=== PATIENT | female | born 1995 | race Caucasian/White ===

== ENCOUNTER 2023-10-26 15:46 | Inpatient (IN) | payer BC, OTHER ==
--- NOTE | 2023-10-26 16:28 | ED ---
General Adult HPI - General Chief complaint: Upper Respiratory Infection Stated complaint: High BP Time Seen by Provider: 10/26/23 16:12 Source: patient Mode of arrival: ambulatory Limitations: no limitations - History of Present Illness Initial comments: Carina is a pleasant 28yo F who presents to the ER today via private vehicle for evaluation of multiple complaints. Patient is 4 days , yesterday she developed runny stuffy nose, headache and generalized malaise she was seen at an urgent care where her BP was 130s/70s and she was negative for Flu/COVID. 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 Chahal who advised her to seek care in the nearest ER for evaluation of possible preeclampsia. Upon arrival here patient reports she still has runny stuffy nose she has developed a headache and fever. She denies abdominal pain nausea vomiting. She states minimal uterine cramping no malodorous discharge. The patient is currently breast-feeding and planning to continue to. - Related Data Allergies Allergy/AdvReac Type Severity Reaction Status Date / Time No Known Allergies Allergy Verified 10/26/23 15:58 Review of Systems ROS Statement: Those systems with pertinent positive or pertinent negative responses have been documented in the HPI. ROS Other: All systems not noted in ROS Statement are negative. Past Medical History Past Medical History: No Reported History Past Surgical History: Orthopedic Surgery General Exam - General Exam Comments Initial Comments: Physical Exam GENERAL: Ill appearing, flushed HENT: Normocephalic, Atraumatic. EYES: PERRL, EOMI PULMONARY: Unlabored respirations. CARDIOVASCULAR: RRR ABDOMEN: Soft with appropriate tenderness SKIN: Skin is clear with no lesions or rashes and otherwise unremarkable. : Deferred NEUROLOGIC: Patient is alert and oriented x3. Moving all extremities spontaneously MUSCULOSKELETAL: Normal extremities with adequate strength and full range of motion. No lower extremity swelling or edema. No calf tenderness. PSYCHIATRIC: Normal psychiatric evaluation. Limitations: no limitations Course Vital Signs 10/26/23 10/26/23 10/26/23 15:53 16:20 17:00 Temperature 101.5 F H Pulse Rate 79 69 Respiratory 16 20 Rate Blood Pressure 179/102 161/97 161/97 O2 Sat by Pulse 94 L 93 L Oximetry 10/26/23 10/26/23 10/26/23 17:23 18:47 19:47 Temperature 98.8 F Pulse Rate 64 79 84 Respiratory 18 18 16 Rate Blood Pressure 150/87 141/82 134/79 O2 Sat by Pulse 93 L 93 L 95 Oximetry 10/26/23 10/26/23 10/26/23 20:00 21:15 22:13 Temperature 97.8 F Pulse Rate 80 80 84 Respiratory 18 18 16 Rate Blood Pressure 134/79 147/82 137/88 O2 Sat by Pulse 96 97 96 Oximetry 10/26/23 10/27/23 10/27/23 23:30 00:00 01:00 Temperature 98.6 F Pulse Rate 82 90 89 Respiratory 18 18 18 Rate Blood Pressure 149/91 149/91 150/85 O2 Sat by Pulse 95 95 96 Oximetry EKG Findings - EKG Comments: EKG Findings:: EKG interpreted by me, EKG obtained at 1636 rate is 67 rhythm is sinus, [place] 149 QRS 96 QTc [address] elevations or depressions no evidence of acute ischemia or infarction Medical Decision Making - Medical Decision Making Was pt. sent in by a medical professional or institution (, PA, FISH BAILER, urgent care, hospital, or long term...) When possible be specific @ -Yes advised to come in by her OB Did you speak to anyone other than the patient for history (EMS, parent, family, police, friend...)? What history was obtained from this source @ -No Did you review nursing and triage notes (agree or disagree)? Why? @ -I reviewed and agree with nursing and triage notes Were old charts reviewed (outside hosp., previous admission, EMS record, old EKG, old radiological studies, urgent care reports/EKG's, long term records)? Report findings @ -No old charts were reviewed Differential Diagnosis (chest pain, altered mental status, abdominal pain women, abdominal pain men, vaginal bleeding, weakness, fever, dyspnea, syncope, headache, dizziness, GI bleed, back pain, seizure, CVA, palpatations, mental health)? @ -Differential Dyspnea: Coronary syndrome, arrhythmia, tamponade, asthma, COPD, pulmonary embolism, pneumonia, pneumothorax, pulmonary effusion, anaphylaxis, diabetic ketoacidosis, flailed chest, pulmonary contusion, diaphragmatic rupture, anemia, neuromuscular, this is not meant to be an all-inclusive list. Differential for hypertension is untreated hypertension, preeclampsia EKG interpreted by me (3pts min.). @ -As above X-rays interpreted by me (1pt min.). @ -Left-sided consolidation and effusion CT interpreted by me (1pt min.). @ -None done U/S interpreted by me (1pt. min.). @ -None done What testing was considered but not performed or refused? (CT, X-rays, U/S, labs)? Why? @ -None What meds were considered but not given or refused? Why? @ -None Did you discuss the management of the patient with other professionals (professionals i.e. Dr., PA, FISH BAILER, lab, RT, psych nurse, geriatric social work professor, dip filler, teacher, retail loss prevention officer, case assembler)? Give summary @ -Yes discussed with on-call OB Dr. Ge Was smoking cessation discussed for >3mins.? @ -No Was critical care preformed (if so, how long)? @ -Yes, 35 minutes Were there social determinants of health that impacted care today? How? (Homelessness, low income, unemployed, alcoholism, drug addiction, transportation, low edu. Level, literacy, decrease access to med. care, usp, rehab)? @ -No Was there de-escalation of care discussed even if they declined (Discuss DNR or withdrawal of care, Hospice)? DNR status @ -No What co-morbidities impacted this encounter? (DM, HTN, Smoking, COPD, CAD, Cancer, CVA, ARF, Chemo, Hep., AIDS, mental health diagnosis, sleep apnea, morbid obesity)? @ -None Was patient admitted / discharged? Hospital course, mention meds given and route, prescriptions, significant lab abnormalities, going to OR and other pertinent info. @ -Admit The patient was seen and evaluated immediately upon arrival to the emergency department. This patient is 4 days and noted to be significantly hypertensive in addition the patient is febrile but not tachycardic or tachypneic. Septic workup as well as labs for preeclampsia were ordered. Patient care was then discussed with Dr. Ge who recommended treatment for preeclampsia with antihypertensives, magnesium and plan for admission for 24-hour magnesium. Patient's blood pressure improved with labetalol and magnesium Labs were reviewed, there is elevation of LDH and lactic acid mild transaminitis concerning for preeclampsia, however there is no proteinuria noted In addition patient is noted to likely have a left-sided pneumonia -Rocephin and azithromycin were ordered Patient will be admitted to OB for treatment of preeclampsia Patient also found to have significant left-sided pneumonia, she meets sepsis criteria and has been treated appropriately with antipyretics IV fluids and broad-spectrum antibiotics. Patient was noted to have oxygen saturation in the low 90s while at rest given the multiple compounding conditions the patient has going on right now I do have concern that she will become critically ill and will require very close monitoring. Dr. Mariscal agreed to consult on care for patient placement in the ICU. Recommends every 4 hour magnesium level. Additional labs were ordered upon admission patient was noted to have a indeterminately elevated troponin, elevated BNP concerning for CHF, elevated reticulocyte count. Given these multiple findings echo was ordered and cardiology was consulted. Undiagnosed new problem with uncertain prognosis? @ -Yes Drug Therapy requiring intensive monitoring for toxicity (Heparin, Nitro, Insulin, Cardizem)? @ -Yes, magnesium infusion Were any procedures done? @ -No Diagnosis/symptom? @ - preeclampsia Acute, or Chronic, or Acute on Chronic? @ -Acute Uncomplicated (without systemic symptoms) or Complicated (systemic symptoms)? @ -Complicated Side effects of treatment? @ -No Exacerbation, Progression, or Severe Exacerbation? @ -No Poses a threat to life or bodily function? How? (Chest pain, USA, PA, pneumonia, PE, COPD, DKA, ARF, appy, cholecystitis, CVA, Diverticulitis, Homicidal, Eusebia cidal, threat to staff... and all critical care pts) @ -Yes can advance to eclampsia seizures and Diagnosis/symptom? @ -Sepsis, pneumonia Acute, or Chronic, or Acute on Chronic? @ -Acute Uncomplicated (without systemic symptoms) or Complicated (systemic symptoms)? @ -Complicated Side effects of treatment? @ -None Exacerbation, Progression, or Severe Exacerbation] @ -No Poses a threat to life or bodily function? @ -Yes can advance to septic shock cardiovascular collapse and - Lab Data Result diagrams: 10/26/23 16:33 10/26/23 16:33 Lab Results 10/26/23 10/26/23 10/26/23 Range/Units 16:33 16:33 16:33 WBC 12.7 H (3.8-10.6) k/uL RBC 4.23 (3.80-5.40) m/uL Hgb 12.8 (11.4-16.0) gm/dL Hct 37.8 (34.0-46.0) % MCV 89.3 (80.0-100.0) fL MCH 30.3 (25.0-35.0) pg MCHC 33.9 (31.0-37.0) g/dL RDW 13.8 (11.5-15.5) % Plt Count 292 (150-450) k/uL MPV 7.9 Neutrophils % 82 % Lymphocytes % 11 % Monocytes % 5 % Eosinophils % 1 % Basophils % 0 % Neutrophils # 10.5 H (1.3-7.7) k/uL Lymphocytes # 1.4 (1.0-4.8) k/uL Monocytes # 0.6 (0-1.0) k/uL Eosinophils # 0.1 (0-0.7) k/uL Basophils # 0.1 (0-0.2) k/uL Retic Count (0.5-2.0) % PT 10.1 (10.0-12.5) sec INR 0.9 (<1.2) APTT 24.6 (22.0-30.0) sec Sodium (137-145) mmol/L Potassium (3.5-5.1) mmol/L Chloride (98-107) mmol/L Carbon Dioxide (22-30) mmol/L Anion Gap mmol/L BUN (7-17) mg/dL Creatinine (0.52-1.04) mg/dL Est GFR (CKD-EPI)AfAm (>60 ml/min/1.73 sqM) Est GFR (CKD-EPI)NonAf (>60 ml/min/1.73 sqM) Glucose (74-99) mg/dL Plasma Lactic Acid Maynor (0.7-2.0) mmol/L Uric Acid (3.7-7.4) mg/dL Calcium (8.4-10.2) mg/dL Magnesium (1.6-2.3) mg/dL Total Bilirubin (0.2-1.3) mg/dL AST (14-36) U/L ALT (4-34) U/L Alkaline Phosphatase (38-126) U/L Lactate Dehydrogenase (120-246) U/L NT-Pro-B Natriuret Pep pg/mL Total Protein (6.3-8.2) g/dL Albumin (3.5-5.0) g/dL Urine Color Colorless Urine Appearance Clear (Clear) Urine pH 7.0 (5.0-8.0) Ur Specific Seymour 1.004 (1.001-1.035) Urine Protein Negative (Negative) Urine Glucose (UA) Negative (Negative) Urine Ketones Negative (Negative) Urine Blood Small H (Negative) Urine Nitrite Negative (Negative) Urine Bilirubin Negative (Negative) Urine Urobilinogen <2.0 (<2.0) mg/dL Ur Leukocyte Esterase Negative (Negative) Urine RBC 1 (0-5) /hpf Urine WBC (0-5) /hpf Urine WBC Clumps (None) /hpf Ur Squamous Epith Cells <1 (0-4) /hpf Urine Bacteria (None) /hpf Influenza Type A (PCR) (Not Detectd) Influenza Type B (PCR) (Not Detectd) RSV (PCR) (Not Detectd) SARS-CoV-2 (PCR) (Not Detectd) 10/26/23 10/26/23 10/26/23 Range/Units 16:33 16:33 16:33 WBC (3.8-10.6) k/uL RBC (3.80-5.40) m/uL Hgb (11.4-16.0) gm/dL Hct (34.0-46.0) % MCV (80.0-100.0) fL MCH (25.0-35.0) pg MCHC (31.0-37.0) g/dL RDW (11.5-15.5) % Plt Count (150-450) k/uL MPV Neutrophils % % Lymphocytes % % Monocytes % % Eosinophils % % Basophils % % Neutrophils # (1.3-7.7) k/uL Lymphocytes # (1.0-4.8) k/uL Monocytes # (0-1.0) k/uL Eosinophils # (0-0.7) k/uL Basophils # (0-0.2) k/uL Retic Count (0.5-2.0) % PT (10.0-12.5) sec INR (<1.2) APTT (22.0-30.0) sec Sodium 133 L (137-145) mmol/L Potassium 3.3 L (3.5-5.1) mmol/L Chloride 101 (98-107) mmol/L Carbon Dioxide 23 (22-30) mmol/L Anion Gap 9 mmol/L BUN 7 (7-17) mg/dL Creatinine 0.65 (0.52-1.04) mg/dL Est GFR (CKD-EPI)AfAm >90 (>60 ml/min/1.73 sqM) Est GFR (CKD-EPI)NonAf >90 (>60 ml/min/1.73 sqM) Glucose 99 (74-99) mg/dL Plasma Lactic Acid Maynor 1.1 (0.7-2.0) mmol/L Uric Acid 5.5 (3.7-7.4) mg/dL Calcium 8.5 (8.4-10.2) mg/dL Magnesium (1.6-2.3) mg/dL Total Bilirubin 0.8 (0.2-1.3) mg/dL AST 60 H (14-36) U/L ALT 38 H (4-34) U/L Alkaline Phosphatase 142 H (38-126) U/L Lactate Dehydrogenase 452 H (120-246) U/L NT-Pro-B Natriuret Pep pg/mL Total Protein 6.7 (6.3-8.2) g/dL Albumin 3.6 (3.5-5.0) g/dL Urine Color Urine Appearance (Clear) Urine pH (5.0-8.0) Ur Specific Seymour (1.001-1.035) Urine Protein (Negative) Urine Glucose (UA) (Negative) Urine Ketones (Negative) Urine Blood (Negative) Urine Nitrite (Negative) Urine Bilirubin (Negative) Urine Urobilinogen (<2.0) mg/dL Ur Leukocyte Esterase (Negative) Urine RBC (0-5) /hpf Urine WBC (0-5) /hpf Urine WBC Clumps (None) /hpf Ur Squamous Epith Cells (0-4) /hpf Urine Bacteria (None) /hpf Influenza Type A (PCR) Not Detected (Not Detectd) Influenza Type B (PCR) Not Detected (Not Detectd) RSV (PCR) Not Detected (Not Detectd) SARS-CoV-2 (PCR) Not Detected (Not Detectd) 10/26/23 10/26/23 10/26/23 Range/Units 16:33 16:33 17:15 WBC (3.8-10.6) k/uL RBC (3.80-5.40) m/uL Hgb (11.4-16.0) gm/dL Hct (34.0-46.0) % MCV (80.0-100.0) fL MCH (25.0-35.0) pg MCHC (31.0-37.0) g/dL RDW (11.5-15.5) % Plt Count (150-450) k/uL MPV Neutrophils % % Lymphocytes % % Monocytes % % Eosinophils % % Basophils % % Neutrophils # (1.3-7.7) k/uL Lymphocytes # (1.0-4.8) k/uL Monocytes # (0-1.0) k/uL Eosinophils # (0-0.7) k/uL Basophils # (0-0.2) k/uL Retic Count 3.1 H (0.5-2.0) % PT (10.0-12.5) sec INR (<1.2) APTT (22.0-30.0) sec Sodium (137-145) mmol/L Potassium (3.5-5.1) mmol/L Chloride (98-107) mmol/L Carbon Dioxide (22-30) mmol/L Anion Gap mmol/L BUN (7-17) mg/dL Creatinine (0.52-1.04) mg/dL Est GFR (CKD-EPI)AfAm (>60 ml/min/1.73 sqM) Est GFR (CKD-EPI)NonAf (>60 ml/min/1.73 sqM) Glucose (74-99) mg/dL Plasma Lactic Acid Maynor (0.7-2.0) mmol/L Uric Acid (3.7-7.4) mg/dL Calcium (8.4-10.2) mg/dL Magnesium 1.5 L (1.6-2.3) mg/dL Total Bilirubin (0.2-1.3) mg/dL AST (14-36) U/L ALT (4-34) U/L Alkaline Phosphatase (38-126) U/L Lactate Dehydrogenase (120-246) U/L NT-Pro-B Natriuret Pep 1150 pg/mL Total Protein (6.3-8.2) g/dL Albumin (3.5-5.0) g/dL Urine Color Colorless Urine Appearance Clear (Clear) Urine pH 6.0 (5.0-8.0) Ur Specific Seymour 1.009 (1.001-1.035) Urine Protein 1+ H (Negative) Urine Glucose (UA) Negative (Negative) Urine Ketones Negative (Negative) Urine Blood Small H (Negative) Urine Nitrite Negative (Negative) Urine Bilirubin Negative (Negative) Urine Urobilinogen <2.0 (<2.0) mg/dL Ur Leukocyte Esterase Large H (Negative) Urine RBC 9 H (0-5) /hpf Urine WBC 45 H (0-5) /hpf Urine WBC Clumps Rare H (None) /hpf Ur Squamous Epith Cells <1 (0-4) /hpf Urine Bacteria Moderate H (None) /hpf Influenza Type A (PCR) (Not Detectd) Influenza Type B (PCR) (Not Detectd) RSV (PCR) (Not Detectd) SARS-CoV-2 (PCR) (Not Detectd) Critical Care Time Critical Care Time: Yes Total Critical Care Time: 45 Disposition Clinical Impression: depression associated with first , Sepsis, Pneumonia Disposition: ADMITTED IP TO THIS HOSP Condition: Serious Is patient prescribed a controlled substance at d/c from ED?: No
[2023-10-26] MEDS: SODIUM CHLORIDE 0.9% 1,000 ML IV SCH (16:41)
[2023-10-26] MEDS: SODIUM CHLORIDE 0.9% 500 ML 500 ML IV SCH (16:45)
[2023-10-26 16:48] LABS: Basophils # (A) 0.1 k/uL (0-0.2); Basophils % (A) 0 %; Eosinophils # (A) 0.1 k/uL (0-0.7); Eosinophils % (A) 1 %; HCT 37.8 % (34.0-46.0); HGB 12.8 gm/dL (11.4-16.0); Lymphocytes # (A) 1.4 k/uL (1.0-4.8); Lymphocytes % (A) 11 %; MCH 30.3 pg (25.0-35.0); MCHC 33.9 g/dL (31.0-37.0); MCV 89.3 fL (80.0-100.0); Mean Platelet Volume 7.9; Monocytes # (A) 0.6 k/uL (0-1.0); Monocytes % (A) 5 %; Neutrophils # (A) 10.5 k/uL (1.3-7.7); Neutrophils % (A) 82 %; Platelet Count 292 k/uL (150-450); RBC 4.23 m/uL (3.80-5.40); RDW 13.8 % (11.5-15.5); WBC 12.7 k/uL (3.8-10.6)
[2023-10-26] MEDS: IBUPROFEN 600 MG TAB PO STA (17:00)
[2023-10-26] MEDS: LABETALOL 5 MG/ML VIAL MDV IVP STA (17:11)
[2023-10-26 17:16] LABS: ALT 38 U/L (4-34); African American GFR (CKD) >90 (>60 ml/min/1.73 sqM); Albumin 3.6 g/dL (3.5-5.0); Anion Gap 9 mmol/L; Blood Urea Nitrogen 7 mg/dL (7-17); Calcium 8.5 mg/dL (8.4-10.2); Carbon Dioxide 23 mmol/L (22-30); Chloride 101 mmol/L (98-107); Glucose 99 mg/dL (74-99); Non-African American GFR(CKD) >90 (>60 ml/min/1.73 sqM); Sodium 133 mmol/L (137-145); Total Bilirubin 0.8 mg/dL (0.2-1.3); Total Protein 6.7 g/dL (6.3-8.2); Uric Acid 5.5 mg/dL (3.7-7.4)
[2023-10-26] MEDS: MAGNESIUM SULFATE-WATER PMX 4 GM in WATER FOR INJECTION 1 100ML.BAG IVPB STA (17:22)
[2023-10-26 17:35] LABS: INR 0.9 (<1.2); Partial Thromboplastin Time 24.6 sec (22.0-30.0); Prothrombin Time 10.1 sec (10.0-12.5)
[2023-10-26 17:43] LABS: AST 60 U/L (14-36); Alkaline Phosphatase 142 U/L (38-126); LDH 452 U/L (120-246); Potassium 3.3 mmol/L (3.5-5.1)
[2023-10-26 17:57] LABS: Appearance,Urine Clear (Clear); Bilirubin,Urine Negative (Negative); Blood,Urine Small (Negative); Color,Urine Colorless; Glucose,Urine (UA) Negative (Negative); Ketones,Urine Negative (Negative); Leukocyte Esterase,Urine Negative (Negative); Nitrite,Urine Negative (Negative); Protein,Urine Negative (Negative); RBC,Urine 1 /hpf (0-5); Specific Gravity,Urine 1.004 (1.001-1.035); Squamous Epithelial Cell,Urine <1 /hpf (0-4); Urobilinogen,Urine <2.0 mg/dL (<2.0)
[2023-10-26] MEDS ORDERED: NALOXONE 0.4 MG/ML 1 ML VIAL IV PRN (18:00)
[2023-10-26] MEDS: MAGNESIUM SULFATE-WATER PMX 20 GM in WATER FOR INJECTION 1 500ML.BAG IV SCH (18:04)
--- NOTE | 2023-10-26 18:15 | P.HPOB ---
History of Present Illness H&P Date: 10/26/23 Chief Complaint: Headache, fevers, malaise, congestion Ms. Leon is a 28 year old now who is 4 days from a vaginal delivery at [facility] with Dr. Chahal who presents today with upper respiratory illness symptoms including headache, malaise, fevers, chills, and congestion. She was seen at urgent care yesterday at which time COVID and influenza testing was negative. Blood pressure at that time was within normal limits. Today she again returned to urgent care for worsening symptoms and was diagnosed with a sinus infection. She was given Amoxicillin to treat this. While at urgent care, she was noted to have severe-range blood pressures and was sent to the ER for pre-eclampsia. In the ER, her first pressures were 160s-170s/90s-100s. Labwork was notable for AST 60, ALT 38, LDH 452, Alk Phos 152, and WBC 12.4. The patient was treated with IV Labetalol 20mg and her blood pressures dropped to mild range hypertensive. She reported a severe headache behind her eyes which is now improving after Motrin. She also endorses some blur ry vision. She denies right upper quadrant pain. The was uncomplicated and the patient denies any blood pressure problems until today. The patient also denies chest pain, shortness of breath, abdominal pain, dysuria, hematuria, engorged breasts, and erythematous breasts. The patient is with formula supplementation. She had a viable female weighing 7 pounds and 10 ounces. She did have a second degree perineal laceration during the delivery. Past medical history: Denies Medications: vitamins, iron supplements Past surgical history: Denies Social history: no smoking, drinking, or drug use during or Past Medical History Past Medical History: No Reported History Past Surgical History: Orthopedic Surgery Medications and Allergies Allergies Allergy/AdvReac Type Severity Reaction Status Date / Time No Known Allergies Allergy Verified 10/26/23 15:58 Exam Vital Signs Temp Pulse Resp BP Pulse Ox 10/26/23 17:23 64 18 150/87 93 L 10/26/23 17:00 69 20 161/97 93 L 10/26/23 16:20 161/97 10/26/23 15:53 101.5 F H 79 16 179/102 94 L Intake and Output 10/26/23 10/26/23 10/26/23 06:59 14:59 22:59 Other: Weight 99.79 kg Focused physical exam is performed. This is a healthy-appearing female in no apparent distress. Breathing is non-labored and she is conversing normally. Abdomen is soft and nontender, there is no fundal tenderness on deep palpation. Extremities are non-tender and non-edematous. Results Result Diagrams: 10/26/23 16:33 10/26/23 16:33 Abnormal Lab Results - Last 24 Hours (Table) 10/26/23 10/26/23 10/26/23 Range/Units 16:33 16:33 16:33 WBC 12.7 H (3.8-10.6) k/uL Neutrophils # 10.5 H (1.3-7.7) k/uL Sodium 133 L (137-145) mmol/L Potassium 3.3 L (3.5-5.1) mmol/L AST 60 H (14-36) U/L ALT 38 H (4-34) U/L Alkaline Phosphatase 142 H (38-126) U/L Lactate Dehydrogenase 452 H (120-246) U/L Urine Blood Small H (Negative) Assessment and Plan Assessment: 28 year old post- day #4 s/p uncomplicated vaginal delivery at [facility] presenting with severe-range blood pressures and elevated LFTs consistent with pre-eclampsia Plan: Admit, clear liquid diet on the floor, IV Magensium Sulfate x24 hours for seizure prophylaxis, Labetalol 200mg BID for hypertension, Motrin and Tylenol prn for pain or fever, vitals every 4 hours, breast pump in the room. Time with Patient: Greater than 30 (35 minutes)
--- NOTE | 2023-10-26 18:21 | XR ---
EXAMINATION TYPE: XR chest 2V DATE OF EXAM: 10/26/2023 6:09 PM CLINICAL INDICATION:Female, 28 years old with history of Fever; [facility] COMPARISON: None TECHNIQUE: XR chest 2V. Frontal and lateral views of the chest.. FINDINGS: Lines/Tubes/Devices: EKG leads overlie the chest. No indwelling lines are seen. Heart/mediastinum: Heart size is normal. Mediastinum appears normal. Pulmonary vascularity: Not increased, Lungs/Pleura: Hazy opacification over the left mid to lower lung zones with more dense consolidation seen in the left midlung zone and to a lesser degree left lower lobe. Small left pleural effusion. Th e right lung and pleural space are relatively clear. No visualized pneumothorax. Musculoskeletal: No acute osseous abnormality demonstrated in the limits of the exam. Other findings: None. IMPRESSION: 1. Left lung airspace opacities, greatest in the left midlung zone, likely pneumonia. Follow-up to [facility] emergency department. 2. Small left pleural effusion.
[2023-10-26] MEDS: cefTRIAXone IN SWFI 1,000 MG/10 ML SYRINGE IVP STA (19:31)
[2023-10-26] MEDS: AZITHROMYCIN 500 MG in SODIUM CHLORIDE 0.9% 250 ML IVPB STA (19:32)
[2023-10-26 20:04] LABS: Reticulocyte % 3.1 % (0.5-2.0)
[2023-10-26 20:07] LABS: Magnesium 1.5 mg/dL (1.6-2.3)
[2023-10-26 20:26] LABS: Appearance,Urine Clear (Clear); Bacteria,Urine Moderate /hpf; Bilirubin,Urine Negative (Negative); Blood,Urine Small (Negative); Color,Urine Colorless; Glucose,Urine (UA) Negative (Negative); Ketones,Urine Negative (Negative); Leukocyte Esterase,Urine Large (Negative); Nitrite,Urine Negative (Negative); Protein,Urine 1+ (Negative); RBC,Urine 9 /hpf (0-5); Specific Gravity,Urine 1.009 (1.001-1.035); Squamous Epithelial Cell,Urine <1 /hpf (0-4); Urobilinogen,Urine <2.0 mg/dL (<2.0); WBC,Urine 45 /hpf (0-5)
[2023-10-27] MEDS: IBUPROFEN 400 MG TAB PO PRN (07:44)
[2023-10-27] MEDS: LABETALOL 200 MG TAB PO SCH (08:32)
[2023-10-27] MEDS ORDERED: PNEUMONIA PROTOCOL UTILIZED 1 EACH MISC PO PRN (09:37)
--- NOTE | 2023-10-27 10:25 | XR ---
EXAMINATION TYPE: XR chest 2V DATE OF EXAM: 10/27/2023 COMPARISON: 10/26/2023 TECHNIQUE: PA and lateral views submitted. HISTORY: sob FINDINGS: Masslike consolidation left upper lobe with bilateral lower lobe infiltrate and small effusion. No pn eumothorax. Osseous structures are stable. IMPRESSION: 1. Stable bilateral lower lobe infiltrate and small effusion. Large masslike area of density in left upper lobe suspicious for pneumonia. Follow-up to lower resolution to exclude other etiologies includ ing neoplasm.
[2023-10-27] MEDS: PIPERACILLIN-TAZOBACTAM 3.375 GM in SODIUM CHLORIDE 0.9% 100 ML IVPB SCH (11:35)
--- NOTE | 2023-10-27 11:41 | P.PN ---
Subjective Progress Note Date: 10/27/23 Principal diagnosis: Post- pre-eclampsia, pneumonia Pt feeling sig better today, denies SOB, no p- depression. Lochia normal. No pain. Denies h/a, scotomata. Objective - Vital Signs Vital signs: Vital Signs Temp 98.3 F 10/27/23 07:04 Pulse 86 10/27/23 11:02 Resp 18 10/27/23 11:02 BP 114/70 10/27/23 11:02 Pulse Ox 96 10/27/23 11:02 FiO2 Intake & Output 10/26/23 10/27/23 10/27/23 18:59 06:59 18:59 Intake Total 500 Balance 500 Weight 99.79 kg Intake: Intake, IV Titration 500 Amount Magnesium Sulfate-Water 500 Pmx 20 gm In Water For Injection 1 500ml.bag @ 2 GM/HR 50 mls/hr IV .Q10H [facility] Rx#:[id number] - Exam In gen, well-developed, well-nourished white female in no acute distress. Abd soft, NT, without masses, fundus tonic and NT ~the umbilicus. Ext w/ min edema, NT to palp B. - Labs CBC & Chem 7: 10/26/23 16:33 10/26/23 16:33 Labs: Abnormal Lab Results - Last 24 Hours (Table) 10/26/23 10/26/23 10/26/23 Range/Units 16:33 16:33 16:33 WBC 12.7 H (3.8-10.6) k/uL Neutrophils # 10.5 H (1.3-7.7) k/uL Retic Count (0.5-2.0) % Haptoglobin (31.2-198.0) mg/dL Sodium 133 L (137-145) mmol/L Potassium 3.3 L (3.5-5.1) mmol/L Magnesium (1.6-2.3) mg/dL AST 60 H (14-36) U/L ALT 38 H (4-34) U/L Alkaline Phosphatase 142 H (38-126) U/L Lactate Dehydrogenase 452 H (120-246) U/L Urine Protein (Negative) Urine Blood Small H (Negative) Ur Leukocyte Esterase (Negative) Urine RBC (0-5) /hpf Urine WBC (0-5) /hpf Urine WBC Clumps (None) /hpf Urine Bacteria (None) /hpf 10/26/23 10/26/23 10/26/23 Range/Units 16:33 16:33 16:33 WBC (3.8-10.6) k/uL Neutrophils # (1.3-7.7) k/uL Retic Count 3.1 H (0.5-2.0) % Haptoglobin 201.0 H (31.2-198.0) mg/dL Sodium (137-145) mmol/L Potassium (3.5-5.1) mmol/L Magnesium 1.5 L (1.6-2.3) mg/dL AST (14-36) U/L ALT (4-34) U/L Alkaline Phosphatase (38-126) U/L Lactate Dehydrogenase (120-246) U/L Urine Protein (Negative) Urine Blood (Negative) Ur Leukocyte Esterase (Negative) Urine RBC (0-5) /hpf Urine WBC (0-5) /hpf Urine WBC Clumps (None) /hpf Urine Bacteria (None) /hpf 10/26/23 10/26/23 10/27/23 Range/Units 17:15 22:27 02:26 WBC (3.8-10.6) k/uL Neutrophils # (1.3-7.7) k/uL Retic Count (0.5-2.0) % Haptoglobin (31.2-198.0) mg/dL Sodium (137-145) mmol/L Potassium (3.5-5.1) mmol/L Magnesium 4.0 H 4.5 H (1.6-2.3) mg/dL AST (14-36) U/L ALT (4-34) U/L Alkaline Phosphatase (38-126) U/L Lactate Dehydrogenase (120-246) U/L Urine Protein 1+ H (Negative) Urine Blood Small H (Negative) Ur Leukocyte Esterase Large H (Negative) Urine RBC 9 H (0-5) /hpf Urine WBC 45 H (0-5) /hpf Urine WBC Clumps Rare H (None) /hpf Urine Bacteria Moderate H (None) /hpf Assessment and Plan (1) Pre-eclampsia, Current Visit: Yes Status: Acute Code(s): O14.95 - UNSPECIFIED PRE- ECLAMPSIA, COMPLICATING THE PUERPERIUM SNOMED Code(s): 869329513 (2) Pneumonia Current Visit: Yes Status: Acute Code(s): J18.9 - PNEUMONIA, UNSPECIFIED ORGANISM SNOMED Code(s): 017625811 Plan: Pt feeling sig better, MgSO4 incidentally stopped this AM, will be continued until late this afternoon, 24 hours total. BP appears stable at this point, will leave medical management of BP and pneumonia to medical team. Will cont to follow peripherally. SCDs ordered as the patient is essentially bedbound, infected, and post-.
--- NOTE | 2023-10-27 12:35 | P.HPIM ---
History of Present Illness H&P Date: 10/27/23 Chief Complaint: Headache, malaise, fever * 28-year-old patient who is 4 days after vaginal delivery at an outside hospital presents with shortness of breath, headache, fever, chills, nasal congestion and malaise. Patient went to an urgent care where she was tested for upper respiratory tract infection including influenza as well as coronavirus and was tested negative. Patient return to seek medical attention for worsening symptoms and was concerned for sinus infection. While at urgent care patient was given amoxicillin. Patient was also noted to have elevated blood pressure and was sent to ER from the urgent care to monitor for preeclampsia * At the time of presentation in ER blood work was obtained which showed elevated liver profile including AST of 60 ALT 38 LDH of 452 WBC count of 12.4. Blood pressure was noted to be elevated with systolic blood pressure in 170s. * Patient was given 1 dose of IV labetalol and significant improvement in blood pressure was noted. Workup obtained in ED included a chest x-ray which showed left lung opacity consideration for pneumonia. Small left-sided pleural effusion was noted * Patient was given IV antibiotic including Rocephin and azithromycin and was escalated to IV Zosyn blood cultures urine cultures requested * Due to elevated blood pressure echocardiogram was ordered as well REVIEW OF SYSTEMS: Shortness of breath, headache, sinus congestion CONSTITUTIONAL: No fever, no malaise, no fatigue. HEENT: No recent visual problems or hearing problems. Denied any sore throat. CARDIOVASCULAR: No chest pain, orthopnea, PND, no palpitations, no syncope. PULMONARY: Shortness of breath, headache, sinus congestion GASTROINTESTINAL: No diarrhea, no nausea, no vomiting, no abdominal pain. NEUROLOGICAL: No headaches, no weakness, no numbness. HEMATOLOGICAL: Denies any bleeding or petechiae. GENITOURINARY: Denies any burning micturition, frequency, or urgency. MUSCULOSKELETAL/RHEUMATOLOGICAL: Denies any joint pain, swelling, or any muscle pain. ENDOCRINE: Denies any polyuria or polydipsia. PHYSICAL EXAMINATION: GENERAL: The patient is alert and oriented x3, ill appearance HEENT: Pupils are round and equally reacting to light. EOMI. Normocephalic, atraumatic. No pharyngeal erythema. No thyromegaly. CARDIOVASCULAR: S1 and S2 present. No murmurs, rubs, or gallops. PULMONARY: Decreased breath sounds bilaterally ABDOMEN: Soft, nontender, nondistended, normoactive bowel sounds. No palpable organomegaly. MUSCULOSKELETAL: No joint swelling or deformity. EXTREMITIES: No cyanosis, clubbing, or pedal edema. NEUROLOGICAL: Gross neurological examination did not reveal any focal deficits. SKIN: No rashes. Past Medical History Past Medical History: No Reported History Past Surgical History: Orthopedic Surgery Medications and Allergies Home Medications Medication Instructions Recorded Confirmed Type Acetaminophen Tab [Tylenol Tab] 500 mg PO Q4H PRN 10/27/23 10/27/23 History Docusate [Colace] 100 mg PO DAILY 10/27/23 10/27/23 History Ferrous Sulfate [Slow Fe] 137 mg PO DAILY 10/27/23 10/27/23 History Wio-Ksli-Guhns Acid 1 cap PO DAILY 10/27/23 10/27/23 History [-U Capsule (formulary)] Allergies Allergy/AdvReac Type Severity Reaction Status Date / Time No Known Allergies Allergy Verified 10/27/23 11:16 Physical Exam Vitals: Vital Signs Temp Pulse Resp BP Pulse Ox 10/27/23 09:00 85 18 123/78 96 10/27/23 08:00 101 H 18 128/86 96 10/27/23 07:04 98.3 F 92 16 134/85 97 10/27/23 06:02 98.3 F 93 18 144/95 97 10/27/23 05:00 98 F 93 16 131/78 97 10/27/23 04:00 81 16 131/78 96 10/27/23 03:04 94 16 134/81 95 10/27/23 02:02 98.2 F 98 18 135/80 96 10/27/23 01:00 89 18 150/85 96 10/27/23 00:00 90 18 149/91 95 10/26/23 23:30 98.6 F 82 18 149/91 95 10/26/23 22:13 97.8 F 84 16 137/88 96 10/26/23 21:15 80 18 147/82 97 10/26/23 20:00 80 18 134/79 96 10/26/23 19:47 84 16 134/79 95 10/26/23 18:47 98.8 F 79 18 141/82 93 L 10/26/23 17:23 64 18 150/87 93 L 10/26/23 17:00 69 20 161/97 93 L 10/26/23 16:20 161/97 10/26/23 15:53 101.5 F H 79 16 179/102 94 L Intake and Output 10/26/23 10/27/23 10/27/23 22:59 06:59 14:59 Intake Total 500 Balance 500 Intake: Intake, IV Titration 500 Amount Magnesium Sulfate-Water 500 Pmx 20 gm In Water For Injection 1 500ml.bag @ 2 GM/HR 50 mls/hr IV .Q10H [facility] Rx#:[id number] Other: Weight 99.79 kg Results CBC & Chem 7: 10/26/23 16:33 10/26/23 16:33 Labs: Abnormal Lab Results - Last 24 Hours (Table) 10/26/23 10/26/23 10/26/23 Range/Units 16:33 16:33 16:33 WBC 12.7 H (3.8-10.6) k/uL Neutrophils # 10.5 H (1.3-7.7) k/uL Retic Count (0.5-2.0) % Haptoglobin (31.2-198.0) mg/dL Sodium 133 L (137-145) mmol/L Potassium 3.3 L (3.5-5.1) mmol/L Magnesium (1.6-2.3) mg/dL AST 60 H (14-36) U/L ALT 38 H (4-34) U/L Alkaline Phosphatase 142 H (38-126) U/L Lactate Dehydrogenase 452 H (120-246) U/L Urine Protein (Negative) Urine Blood Small H (Negative) Ur Leukocyte Esterase (Negative) Urine RBC (0-5) /hpf Urine WBC (0-5) /hpf Urine WBC Clumps (None) /hpf Urine Bacteria (None) /hpf 10/26/23 10/26/23 10/26/23 Range/Units 16:33 16:33 16:33 WBC (3.8-10.6) k/uL Neutrophils # (1.3-7.7) k/uL Retic Count 3.1 H (0.5-2.0) % Haptoglobin 201.0 H (31.2-198.0) mg/dL Sodium (137-145) mmol/L Potassium (3.5-5.1) mmol/L Magnesium 1.5 L (1.6-2.3) mg/dL AST (14-36) U/L ALT (4-34) U/L Alkaline Phosphatase (38-126) U/L Lactate Dehydrogenase (120-246) U/L Urine Protein (Negative) Urine Blood (Negative) Ur Leukocyte Esterase (Negative) Urine RBC (0-5) /hpf Urine WBC (0-5) /hpf Urine WBC Clumps (None) /hpf Urine Bacteria (None) /hpf 10/26/23 10/26/23 10/27/23 Range/Units 17:15 22:27 02:26 WBC (3.8-10.6) k/uL Neutrophils # (1.3-7.7) k/uL Retic Count (0.5-2.0) % Haptoglobin (31.2-198.0) mg/dL Sodium (137-145) mmol/L Potassium (3.5-5.1) mmol/L Magnesium 4.0 H 4.5 H (1.6-2.3) mg/dL AST (14-36) U/L ALT (4-34) U/L Alkaline Phosphatase (38-126) U/L Lactate Dehydrogenase (120-246) U/L Urine Protein 1+ H (Negative) Urine Blood Small H (Negative) Ur Leukocyte Esterase Large H (Negative) Urine RBC 9 H (0-5) /hpf Urine WBC 45 H (0-5) /hpf Urine WBC Clumps Rare H (None) /hpf Urine Bacteria Moderate H (None) /hpf Assessment and Plan Assessment: Assessment and plan * Left lower lobe pneumonia * preeclampsia * Sepsis secondary to pneumonia * Elevated liver enzymes secondary to preeclampsia * Hyponatremia and hypokalemia * Regards to left lower lobe pneumonia, continue patient on IV Zosyn, appreciate input from infectious disease as well follow-up on urine Legionella and streptococcal antigen * Regards to preeclampsia continue patient on labetalol, wean off oxygen as tolerated, 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 Cardiology consulted echocardiogram ordered * Regards to sepsis, blood cultures urine cultures ordered * In regards to hyponatremia and hypokalemia follow-up on metabolic panel * Code status is full code Time with Patient: Greater than 30
--- NOTE | 2023-10-27 12:43 | CA ---
Transthoracic Echo Report Name: Carina Leon Age: 28 Gender: F : 1995 Exam Date: 10/27/2023 11:29 Exam Location: [facility] Ht (in): 68 Wt (lb): 220 Ordering Physician: Gabbi Askew DO Attending/Referring Phys: [id number], Azar Cold Molding Press Operator Leonor Mcgregor RDCS Procedure CPT: Indications: post CHF Cardiac Hx: Technical Quality: Fair Contrast 1: Total Dose (mL): Contrast 2: Total Dose (mL): MEASUREMENTS (Male / Female) Normal Values 2D ECHO LV Diastolic Diameter PLAX 4.5 cm 4.2 - 5.9 / 3.9 - 5.3 cm LV Systolic Diameter PLAX 3.1 cm IVS Diastolic Thickness 1.3 cm 0.6 - 1.0 / 0.6 - 0.9 cm LVPW Diastolic Thickness 1.3 cm 0.6 - 1.0 / 0.6 - 0.9 cm LV Relative Wall Thickness 0.6 RV Internal Dim ED PLAX 3.8 cm LA Volume 59.6 cm??? 18 - 58 / 22 - 52 cm??? LA Volume Index 26.8 cm???/m??? 16 - 28 cm???/m??? DOPPLER AV Peak Velocity 182.3 cm/s AV Peak Gradient 13.3 mmHg AV Mean Velocity 138.0 cm/s AV Mean Gradient 8.3 mmHg AV Velocity Time Integral 34.7 cm LVOT Peak Velocity 117.9 cm/s LVOT Peak Gradient 5.6 mmHg LVOT Velocity Time Integral 25.1 cm MV Area PHT 4.1 cm??? Mitral E Point Velocity 109.6 cm/s Mitral A Point Velocity 69.6 cm/s Mitral E to A Ratio 1.6 MV Deceleration Time 185.1 ms MV E' Velocity 9.3 cm/s Mitral E to MV E' Ratio 11.8 TR Peak Velocity 284.3 cm/s TR Peak Gradient 32.3 mmHg Right Ventricular Systolic Press 36.4 mmHg FINDINGS Left Ventricle Mildly increased left ventricular wall thickness. Left ventricular cavity size normal. Normal left ventricular systolic function with no obvious regional wall motion abnormalities. Left ventricular ejection fraction is estimated at 50-55 %. Right Ventricle Mild right ventricular dilatation. Mild pulmonary hypertension. Hypokinetic right ventricle Right Atrium Mild right atrial dilatation. Left Atrium Mildly increased left atrial volume. Mitral Valve Structurally normal mitral valve. Mild mitral regurgitation. Aortic Valve No aortic valve stenosis or regurgitation. Tricuspid Valve Structurally normal tricuspid valve. Moderate tricuspid regurgitation. Pulmonic Valve Structurally normal pulmonic valve. Pericardium No pericardial effusion. Aorta Normal size aortic root and proximal ascending aorta. CONCLUSIONS 1. Left ventricle systolic function borderline normal 2. Mild mitral and moderate tricuspid regurgitation with mild pulmonary hypertension 3. Dilated right ventricle with global hypokinesis Previewed by: Dr. Pennie Kidd MD (Electronically Signed) Final Date: 27 October 2023 12:42
--- NOTE | 2023-10-27 14:39 | P.CNPUL ---
History of Present Illness Consult date: 10/27/23 Requesting physician: Tim Moreno Reason for consult: other (Critical care management) Chief complaint: Sinus congestion, cough History of present illness: This is a very pleasant 28-year-old female patient with no significant past medical history who had just delivered a baby girl on October 22, 2023 at [facility] without complication. Following her discharge she had developed increased sinus congestion, cough, congestion and had been seen at a urgent care x 2. The second time she was found to be hypertensive with blood pressures averaging 160/100 and was referred to the emergency room here for the same. There was some concern regarding possible preeclampsia. Did receive magnesium. She was initiated on labetalol 200 mg twice daily. Chest x-ray did reveal a left lung airspace opacity in the mid lung region. Small left pleural effusion. White count 12.7. Hemoglobin 12.8. Sodium 133. Potassium 3.3. Bicarb 23. BUN 7. Creatinine 0.65. Initial magnesium 1.5. Currently 4.5. Troponin negative. AST 60. ALT 38. proBNP 1150. Viral screen negative. Urinalysis with high WBCs and moderate bacteria. Echocardiogram revealed preserved left ventricular systolic function with ejection fraction 50 to 55%. Mild mitral regurgitation with mild pulmonary hypertension. He is seen today in consultation in the emergency department. Initially to be admitted to the intensive care unit. She is sitting up in bed. She is awake and alert in no acute distress. She is maintaining O2 saturations in the 90s on room air. Blood pressure has improved with mean arterial pressures 80-90. Denies any headache. Denies any shortness of breath. She does have an occasional cough, nonproductive. Initial temperature 101.5. Currently afebrile. He was initiated on ceftriaxone. She received 3 L of fluid resuscitation. Currently normal saline at 130 MLS per hour Review of Systems REVIEW OF SYSTEMS: CONSTITUTIONAL: Fifth day , denies any recent significant weight loss or weight gain. EYES: Denies change in vision. EARS, NOSE, MOUTH, THROAT: Positive for sinus congestion. CARDIOVASCULAR: Denies chest pain, palpitations or syncopal episodes. RESPIRATORY: Positive for shortness of breath, cough, congestion no hemoptysis. GASTROINTESTINAL: Denies change in appetite, denies abdominal pain GENITOURINARY: Denies hematuria, denies infections. MUSKULOSKELETAL: Denies pain, denies swelling. INTEGUMENTARY: Denies rash, denies eczema. NEUROLOGICAL: Denies recent memory loss, no recent seizure activity. PSYCHIATRIC: Denies anxiety, denies depression. HEMATOLOGIC/LYMPHATIC: Denies anemia, denies enlarged lymph nodes. Past Medical History Past Medical History: No Reported History Past Surgical History: Orthopedic Surgery Medications and Allergies Home Medications Medication Instructions Recorded Confirmed Type Acetaminophen Tab [Tylenol Tab] 500 mg PO Q4H PRN 10/27/23 10/27/23 History Docusate [Colace] 100 mg PO DAILY 10/27/23 10/27/23 History Ferrous Sulfate [Slow Fe] 137 mg PO DAILY 10/27/23 10/27/23 History Uyp-Jsse-Oqenw Acid 1 cap PO DAILY 10/27/23 10/27/23 History [-U Capsule (formulary)] Allergies Allergy/AdvReac Type Severity Reaction Status Date / Time No Known Allergies Allergy Verified 10/27/23 11:16 Physical Exam Vitals: Vital Signs Temp Pulse Resp BP Pulse Ox 10/27/23 14:01 86 18 118/72 96 10/27/23 13:01 78 18 118/87 95 10/27/23 12:04 71 18 109/72 94 L 10/27/23 11:02 86 18 114/70 96 10/27/23 09:57 92 18 123/78 96 10/27/23 09:00 85 18 123/78 96 10/27/23 08:00 101 H 18 128/86 96 10/27/23 07:04 98.3 F 92 16 134/85 97 10/27/23 06:02 98.3 F 93 18 144/95 97 10/27/23 05:00 98 F 93 16 131/78 97 10/27/23 04:00 81 16 131/78 96 10/27/23 03:04 94 16 134/81 95 10/27/23 02:02 98.2 F 98 18 135/80 96 10/27/23 01:00 89 18 150/85 96 10/27/23 00:00 90 18 149/91 95 10/26/23 23:30 98.6 F 82 18 149/91 95 10/26/23 22:13 97.8 F 84 16 137/88 96 10/26/23 21:15 80 18 147/82 97 10/26/23 20:00 80 18 134/79 96 10/26/23 19:47 84 16 134/79 95 10/26/23 18:47 98.8 F 79 18 141/82 93 L 10/26/23 17:23 64 18 150/87 93 L 10/26/23 17:00 69 20 161/97 93 L 10/26/23 16:20 161/97 10/26/23 15:53 101.5 F H 79 16 179/102 94 L Intake and Output 10/26/23 10/27/23 10/27/23 22:59 06:59 14:59 Intake Total 500 Balance 500 Intake: Intake, IV Titration 500 Amount Magnesium Sulfate-Water 500 Pmx 20 gm In Water For Injection 1 500ml.bag @ 2 GM/HR 50 mls/hr IV .Q10H [facility] Rx#:[id number] Other: Weight 99.79 kg GENERAL EXAM: Alert, very pleasant 28-year-old female, on room air, fairly comfortable in no apparent distress. HEAD: Normocephalic. EYES: Normal reaction of pupils, equal size. NOSE: Clear with pink turbinates. THROAT: No erythema or exudates. NECK: No masses, no JVD. CHEST: No chest wall deformity. LUNGS: Equal air entry with scattered rhonchi over the left midlung. CVS: S1 and S2 normal with no audible murmur, regular rhythm. ABDOMEN: Post . No hepatosplenomegaly, normal bowel sounds, no guarding or rigidity. SPINE: No scoliosis or deformity SKIN: No rashes CENTRAL NERVOUS SYSTEM: No focal deficits, tone is normal in all 4 extremities. EXTREMITIES: There is 1+ peripheral edema. No clubbing, no cyanosis. Peripheral pulses are intact. Results - Laboratory Findings CBC and BMP: 10/26/23 16:33 10/26/23 16:33 PT/INR, D-dimer PT 10.1 sec (10.0-12.5) 10/26/23 16:33 INR 0.9 (<1.2) 10/26/23 16:33 Abnormal lab findings: Abnormal Labs 10/26/23 10/26/23 10/26/23 16:33 16:33 16:33 WBC 12.7 H Neutrophils # 10.5 H Retic Count Haptoglobin Sodium 133 L Potassium 3.3 L Magnesium AST 60 H ALT 38 H Alkaline Phosphatase 142 H Lactate Dehydrogenase 452 H Urine Protein Urine Blood Small H Ur Leukocyte Esterase Urine RBC Urine WBC Urine WBC Clumps Urine Bacteria 10/26/23 10/26/23 10/26/23 16:33 16:33 16:33 WBC Neutrophils # Retic Count 3.1 H Haptoglobin 201.0 H Sodium Potassium Magnesium 1.5 L AST ALT Alkaline Phosphatase Lactate Dehydrogenase Urine Protein Urine Blood Ur Leukocyte Esterase Urine RBC Urine WBC Urine WBC Clumps Urine Bacteria 10/26/23 10/26/23 10/27/23 17:15 22:27 02:26 WBC Neutrophils # Retic Count Haptoglobin Sodium Potassium Magnesium 4.0 H 4.5 H AST ALT Alkaline Phosphatase Lactate Dehydrogenase Urine Protein 1+ H Urine Blood Small H Ur Leukocyte Esterase Large H Urine RBC 9 H Urine WBC 45 H Urine WBC Clumps Rare H Urine Bacteria Moderate H - Diagnostic Findings Chest x-ray: image reviewed Assessment and Plan Assessment: Febrile illness with cough and congestion, sinus congestion in a patient found to have left midlung infiltrate/pneumonia, suspect hospital-acquired versus aspiration day #5 following a uncomplicated vaginal on 10/22/2023 Hypertension, concern regarding possible pre-eclampsia being followed by MANAGER UTILIZATION REVIEW. Improved with labetalol Hypomagnesemia, received supplements and improved Mild transaminitis of unclear etiology Possible urinary tract infection Plan: The patient was seen and evaluated Chest x-ray, labs and medications reviewed Discontinue azithromycin and ceftriaxone Initiate Zosyn Continue labetalol Decrease fluids to KVO Echocardiogram reviewed No need for ICU admission Admit to the regular medical floor CLOUD SERVICES ARCHITECT consulted We will continue to follow and make further recommendations based on her clinical status I have personally seen and examined the patient, performed the documentation and the assessment and plan as written. Number of minutes spent on the visit: 20.
[2023-10-27] MEDS: SODIUM CHLORIDE 0.9% 1,000 ML IV SCH (19:44)
--- NOTE | 2023-10-27 23:07 | P.CONS ---
History of Present Illness - Reason for Consult Consult date: 10/27/23 pneumonia sepsis Requesting physician: Tim Moreno - Chief Complaint Increasing shortness of breath and cough x few days - History of Present Illness Patient is a 28-year-old female who is 5-day at [facility] without any complication patient now presenting to the hospital for evaluation of increasing sinus congestion cough symptom has been getting worse for the last 2 days patient has been complaining of cough which has been moderate intensity however not bring up any sputum. Denies any pleuritic chest pain also complaining of some shortness of breath on minimal exertion patient denies any headache or URI symptoms no nausea no vomiting no abdominal pain he did not have any diarrhea on presentation to the hospital the patient did have a fever of 101.5 F patient was tachycardic at point but not hypotensive mildly hypoxic with O2 sats of 93% on room air currently on 2 L nasal cannula oxygen patient did have white count of 12.7 with a left shift creatinine 0.65 liver isms mildly elevated urine is mildly positive influenza RSV COVID testing was negative chest x-ray left lung airspace disease concerning for pneumonia patient was started on Rocephin and Zithromax which was subsequently switched over to Zosyn admitted to the hospital infectious disease was consulted for further management of antibiotic therapy Review of Systems Positive point and negatives has been mentioned in the HPI, complete review of systems was performed and all other systems are negative Past Medical History Past Medical History: No Reported History Past Surgical History: Orthopedic Surgery - Past Family History Mother Family Medical History: Diabetes Mellitus Medications and Allergies Home Medications Medication Instructions Recorded Confirmed Type Ferrous Sulfate [Slow Fe] 137 mg PO DAILY 10/27/23 10/27/23 History Dfn-Zssm-Fkvos Acid 1 cap PO DAILY 10/27/23 10/27/23 History [-U Capsule (formulary)] Amoxic-Pot Clav 875-125Mg 1 each PO Q12HR 7 Days #14 tab 10/30/23 Rx [Augmentin 875-125] Hydrocortisone Suppository 25 mg RECTAL BID #14 suppositor 10/30/23 Rx [Anusol-Hc] Ibuprofen [Motrin] 400 mg PO Q6HR PRN tab 10/30/23 Rx Labetalol [Trandate] 200 mg PO Q8H #90 tab 10/30/23 Rx Labetalol [Trandate] 200 mg PO TID #30 tab 10/30/23 Rx NIFEdipine XL [Procardia XL] 60 mg PO DAILY #30 tab 10/30/23 Rx guaiFENesin SYRUP 100MG/5ML 200 mg PO Q6HR PRN ml 10/30/23 Rx [Robitussin] Allergies Allergy/AdvReac Type Severity Reaction Status Date / Time No Known Allergies Allergy Verified 10/27/23 11:16 Physical Exam Vitals: Vital Signs Temp Pulse Resp BP Pulse Ox 10/27/23 11:02 86 18 114/70 96 10/27/23 09:57 92 18 123/78 96 10/27/23 09:00 85 18 123/78 96 10/27/23 08:00 101 H 18 128/86 96 10/27/23 07:04 98.3 F 92 16 134/85 97 10/27/23 06:02 98.3 F 93 18 144/95 97 10/27/23 05:00 98 F 93 16 131/78 97 10/27/23 04:00 81 16 131/78 96 10/27/23 03:04 94 16 134/81 95 10/27/23 02:02 98.2 F 98 18 135/80 96 10/27/23 01:00 89 18 150/85 96 10/27/23 00:00 90 18 149/91 95 10/26/23 23:30 98.6 F 82 18 149/91 95 10/26/23 22:13 97.8 F 84 16 137/88 96 10/26/23 21:15 80 18 147/82 97 10/26/23 20:00 80 18 134/79 96 10/26/23 19:47 84 16 134/79 95 10/26/23 18:47 98.8 F 79 18 141/82 93 L 10/26/23 17:23 64 18 150/87 93 L 10/26/23 17:00 69 20 161/97 93 L 10/26/23 16:20 161/97 10/26/23 15:53 101.5 F H 79 16 179/102 94 L Intake and Output 10/26/23 10/27/23 10/27/23 22:59 06:59 14:59 Intake Total 500 Balance 500 Intake: Intake, IV Titration 500 Amount Magnesium Sulfate-Water 500 Pmx 20 gm In Water For Injection 1 500ml.bag @ 2 GM/HR 50 mls/hr IV .Q10H [facility] Rx#:[id number] Other: Weight 99.79 kg GENERAL DESCRIPTION: Middle-aged female lying in bed, no distress. No tachypnea or accessory muscle of respiration use. HEENT: Shows Pallor , no scleral icterus. Oral mucous membrane is dry. NECK: Trachea central, no thyromegaly. LUNGS: Unlabored breathing. Coarse breath sounds bilaterally HEART: S1, S2, regular rate and rhythm. No loud murmur ABDOMEN: Soft, no tenderness , EXTREMITIES: No edema of feet. SKIN: No rash, NEUROLOGICAL: The patient is awake, alert, oriented x3, mood and affect normal. Results CBC & Chem 7: 10/29/23 06:56 10/29/23 06:56 Labs: Abnormal Lab Results - Last 24 Hours (Table) 10/26/23 10/26/23 10/26/23 Range/Units 16:33 16:33 16:33 WBC 12.7 H (3.8-10.6) k/uL Neutrophils # 10.5 H (1.3-7.7) k/uL Retic Count (0.5-2.0) % Haptoglobin (31.2-198.0) mg/dL Sodium 133 L (137-145) mmol/L Potassium 3.3 L (3.5-5.1) mmol/L Magnesium (1.6-2.3) mg/dL AST 60 H (14-36) U/L ALT 38 H (4-34) U/L Alkaline Phosphatase 142 H (38-126) U/L Lactate Dehydrogenase 452 H (120-246) U/L Urine Protein (Negative) Urine Blood Small H (Negative) Ur Leukocyte Esterase (Negative) Urine RBC (0-5) /hpf Urine WBC (0-5) /hpf Urine WBC Clumps (None) /hpf Urine Bacteria (None) /hpf 10/26/23 10/26/23 10/26/23 Range/Units 16:33 16:33 16:33 WBC (3.8-10.6) k/uL Neutrophils # (1.3-7.7) k/uL Retic Count 3.1 H (0.5-2.0) % Haptoglobin 201.0 H (31.2-198.0) mg/dL Sodium (137-145) mmol/L Potassium (3.5-5.1) mmol/L Magnesium 1.5 L (1.6-2.3) mg/dL AST (14-36) U/L ALT (4-34) U/L Alkaline Phosphatase (38-126) U/L Lactate Dehydrogenase (120-246) U/L Urine Protein (Negative) Urine Blood (Negative) Ur Leukocyte Esterase (Negative) Urine RBC (0-5) /hpf Urine WBC (0-5) /hpf Urine WBC Clumps (None) /hpf Urine Bacteria (None) /hpf 10/26/23 10/26/23 10/27/23 Range/Units 17:15 22:27 02:26 WBC (3.8-10.6) k/uL Neutrophils # (1.3-7.7) k/uL Retic Count (0.5-2.0) % Haptoglobin (31.2-198.0) mg/dL Sodium (137-145) mmol/L Potassium (3.5-5.1) mmol/L Magnesium 4.0 H 4.5 H (1.6-2.3) mg/dL AST (14-36) U/L ALT (4-34) U/L Alkaline Phosphatase (38-126) U/L Lactate Dehydrogenase (120-246) U/L Urine Protein 1+ H (Negative) Urine Blood Small H (Negative) Ur Leukocyte Esterase Large H (Negative) Urine RBC 9 H (0-5) /hpf Urine WBC 45 H (0-5) /hpf Urine WBC Clumps Rare H (None) /hpf Urine Bacteria Moderate H (None) /hpf Assessment and Plan (1) Pneumonia Status: Acute Code(s): J18.9 - PNEUMONIA, UNSPECIFIED ORGANISM SNOMED Code(s): 132885105 (2) Sepsis Status: Acute Code(s): A41.9 - SEPSIS, UNSPECIFIED ORGANISM SNOMED Code(s): 64565014 Plan: 1patient presented to hospital with sepsis in this patient who did have a fever elevated white count source is left-sided pneumonia with a question of possible community-acquired versus gram-negative as the patient recently did have admission at [facility] did have a preeclampsia 2-we will try to obtain a sputum for Gram stain and culture check a CRP and procalcitonin 3-continue with Zosyn while waiting for the workup to be completed We will follow on clinical condition and cultures to further adjust medication if needed Thank you for this consultation we will follow the patient along with you Dictation was produced using [employer] dictation software. please excuse any grammatical, word or spelling errors. Time with Patient: Greater than 30
--- NOTE | 2023-10-28 09:30 | P.CRDCN ---
History of Present Illness History of present illness: HISTORY OF PRESENT ILLNESS: This is a 28 year old female with no significant past medical history. Patient does not follow with a resource specialist. We have been asked to see the patient in co nsultation for hypertension. Patient examined at the bedside in the emergency room. Patient is status postdelivery of a baby girl on October 22, 2023 at [facility] [place]. Patient states her delivery was uncomplicated and her baby is healthy. She does report having a little bit of a scratchy throat on Friday when she gave . She states after she was discharged she began to have increasing sinus congestion. She reports having a cough, sore throat, and wheezing. She was seen at the urgent care and was told that she had a sinus infection. She called her OB the next day who directed her to come to the emergency room. The patient was found to have elevated blood pressures and was started on labetalol 200 mg twice a day. Patient was also found to have pneumonia and was started on IV antibiotics. The patient denies any history of hypertension. She does report 1 episode of a high blood pressure reading during labor but that is it. She does not take any prescription medications on an outpatient basis. This morning she reports mild respiratory congestion and mild shortness of breath. She does report she has had some mild edema during her which is usually resolved by wearing compression stockings. DIAGNOSTICS: - EKG reveals sinus mechanism with no signs of acute ischemia. - Chest xray left lung airspace opacities, greater in the left mid lung zone, likely pneumonia. Small left pleural effusion.. - Laboratory data: WBC 12.7. Hemoglobin 12.8. Platelet count 292. Sodium 133. Potassium 3.3. BUN 7. Creatinine 0.65. Lactic acid 1.1. Magnesium 1.5. Repeat 4.5. Troponin negative x 1. proBNP 1150. - Current home cardiac medications include none. -Echocardiogram obtained this admission revealed ejection fraction 50 to 55%, hypokinetic right ventricle, mild MR, mild TR, mild pulm hypertension REVIEW OF SYSTEMS: At the time of my exam: CONSTITUTIONAL: Denies fever or chills. HEENT: Denies blurred vision, vision changes, or eye pain. Denies hemoptysis CARDIOVASCULAR: Denies chest pain. Denies orthopnea. Denies PND. Denies palpitations RESPIRATORY: Denies shortness of breath. GASTROINTESTINAL: Denies abdominal pain. Denies nausea or vomiting. HEMATOLOGIC: Denies bleeding disorders. GENITOURINARY: Denies any blood in urine. SKIN: Denies pruitis. Denies rash. PHYSICAL EXAM: VITAL SIGNS: Reviewed. GENERAL: Well-developed in no acute distress. HEENT: Head is normocephalic. Pupils are equal, round. Sclerae anicteric. Mucous membranes of the mouth are moist. Neck supple. No JVD or thyromegaly LUNGS: Respirations even and unlabored. Lungs essentially clear to auscultation bilaterally. HEART: Regular rate and rhythm. S1 and S2 heard. 1/6 systolic murmur ABDOMEN: Soft. Nondistended. Nontender. EXTREMITIES: Normal range of motion. No clubbing or cyanosis. Peripheral pulses intact. No lower extremity edema NEUROLOGIC: Awake and alert. Oriented x 3. ASSESSMENT: preeclampsia; no evidence of cardiomyopathy Hospital-acquired pneumonia Status post uncomplicated vaginal , 10/22/2023 Hypomagnesemia PLAN: 2D echo obtained and reviewed Continue labetalol 200 mg twice a day Continue to monitor blood pressure Patient is stable for discharge home today from a cardiac standpoint We will sign off. Please reconsult if needed. Nurse practitioner note has been reviewed by physician. Signing provider agrees with the documented findings, assessment, and plan of care documented by STAFF NUCLEAR MEDICINE TECHNOLOGIST as a scribe. Past Medical History Past Medical History: No Reported History Past Surgical History: Orthopedic Surgery - Past Family History Mother Family Medical History: Diabetes Mellitus Medications and Allergies Home Medications Medication Instructions Recorded Confirmed Type Acetaminophen Tab [Tylenol Tab] 500 mg PO Q4H PRN 10/27/23 10/27/23 History Docusate [Colace] 100 mg PO DAILY 10/27/23 10/27/23 History Ferrous Sulfate [Slow Fe] 137 mg PO DAILY 10/27/23 10/27/23 History Efc-Mgrn-Volbg Acid 1 cap PO DAILY 10/27/23 10/27/23 History [-U Capsule (formulary)] Allergies Allergy/AdvReac Type Severity Reaction Status Date / Time No Known Allergies Allergy Verified 10/27/23 11:16 Physical Exam Vitals: Vital Signs Temp Pulse Resp BP Pulse Ox 10/28/23 07:59 97 10/28/23 07:34 74 18 158/97 97 10/28/23 04:20 98.2 F 76 16 151/90 97 10/27/23 22:22 76 18 136/89 98 10/27/23 20:30 89 16 143/96 96 10/27/23 18:07 97 18 139/95 97 10/27/23 17:00 80 18 129/84 96 10/27/23 16:01 90 18 129/87 99 10/27/23 14:01 86 18 118/72 96 10/27/23 13:01 78 18 118/87 95 10/27/23 12:04 71 18 109/72 94 L 10/27/23 11:02 86 18 114/70 96 10/27/23 09:57 92 18 123/78 96 10/27/23 09:00 85 18 123/78 96 Intake and Output 10/27/23 10/28/23 10/28/23 22:59 06:59 14:59 Intake Total 500 Balance 500 Intake: Intake, IV Titration 500 Amount Magnesium Sulfate-Water 500 Pmx 20 gm In Water For Injection 1 500ml.bag @ 2 GM/HR 50 mls/hr IV .Q10H [facility] Rx#:[id number] Results 10/29/23 06:56 10/29/23 06:56 Current Medications Generic Name Dose Route Start Last Admin Trade Name Freq PRN Reason Stop Dose Admin Acetaminophen 650 mg 10/26/23 21:53 Acetaminophen Tab 325 Mg Tab PO Q4HR PRN Mild Pain or Fever >= 100.5 Piperacillin Sod/Tazobactam 100 mls @ 25 mls/hr 10/27/23 09:45 10/28/23 00:18 Sod 3.375 gm/ Sodium Chloride IVPB 11/03/23 09:46 25 mls/hr Q8HR SAL Administration Protocol Sodium Chloride 1,000 mls @ 75 mls/hr 10/27/23 17:45 10/28/23 06:57 Saline 0.9% IV 10/29/23 17:46 Not Given .[id number] SAL Ibuprofen 400 mg 10/26/23 18:00 10/27/23 17:25 Ibuprofen 400 Mg Tab PO 400 mg Q6HR PRN Administration Mild Pain or Fever > 100.5 Labetalol HCl 200 mg 10/27/23 09:00 10/27/23 20:56 Labetalol 200 Mg Tab PO 200 mg BID SAL Administration Miscellaneous Information 1 each 10/27/23 09:37 Pneumonia Protocol Utilized 1 Each Misc PO ONCE PRN Per Protocol Naloxone HCl 0.2 mg 10/26/23 18:00 Naloxone 0.4 Mg/Ml 1 Ml Vial IV Q2M PRN Opioid Reversal Intake and Output 10/27/23 10/28/23 10/28/23 22:59 06:59 14:59 Intake Total 500 Balance 500 Intake: Intake, IV Titration 500 Amount Magnesium Sulfate-Water 500 Pmx 20 gm In Water For Injection 1 500ml.bag @ 2 GM/HR 50 mls/hr IV .Q10H [facility] Rx#:[id number] 10/26/23 16:33 10/26/23 16:33
--- NOTE | 2023-10-28 10:39 | P.PN ---
Subjective Progress Note Date: 10/28/23 Principal diagnosis: preeclampsia and pneumonia Luz is feeling significantly better this morning. She no longer feels short of breath. She is complaining of some sinus congestion and mild headache. She is using the breast pump successfully. Minimal lochia. She denies visual changes. She reports significantly improved bilateral lower extremity swelling. Objective - Vital Signs Vital signs: Vital Signs Temp 98.2 F 10/28/23 04:20 Pulse 83 10/28/23 09:29 Resp 18 10/28/23 09:29 BP 151/104 10/28/23 09:29 Pulse Ox 96 10/28/23 09:29 FiO2 Intake & Output 10/27/23 10/28/23 10/28/23 18:59 06:59 18:59 Intake Total 500 Balance 500 Intake: Intake, IV Titration 500 Amount Magnesium Sulfate-Water 500 Pmx 20 gm In Water For Injection 1 500ml.bag @ 2 GM/HR 50 mls/hr IV .Q10H [facility] Rx#:[id number] - Constitutional General appearance: Present: no acute distress - Respiratory Respiratory: right: CTA, left: wheezing (mild) - Cardiovascular Rhythm: regular Abnormal Heart Sounds: Absent: systolic murmur - Gastrointestinal General gastrointestinal: Present: soft. Absent: tenderness - Labs CBC & Chem 7: 10/26/23 16:33 10/26/23 16:33 Labs: Microbiology - Last 24 Hours (Table) 10/26/23 16:20 Blood Culture - Preliminary Blood 10/26/23 16:35 Blood Culture - Preliminary Blood 10/26/23 17:15 Urine Culture - Preliminary Urine,Voided Gram Neg Bacilli - Imaging and Cardiology Chest x-ray: report reviewed Assessment and Plan (1) Pneumonia Narrative/Plan: Left upper lobe. She is currently afebrile on day 2 of IV Zosyn subjective improvement in shortness of breath, wheezing and other symptoms. CBC pending today. Current Visit: Yes Status: Acute Code(s): J18.9 - PNEUMONIA, UNSPECIFIED ORGANISM SNOMED Code(s): 745007267 (2) Pre-eclampsia, Narrative/Plan: Status post 24 hours magnesium sulfate seizure prophylaxis. Her blood pressures had normalized however this morning she had an elevated blood pressure of 150/104 despite labetalol 200 mg by mouth twice a day. She has prn hydralazine available. Clinically she has minimal to no edema, no hyperreflexia or other concerning symptoms of ongoing preeclampsia. Labs pending. 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 Current Visit: Yes Status: Acute Code(s): O14.95 - UNSPECIFIED PRE- ECLAMPSIA, COMPLICATING THE PUERPERIUM SNOMED Code(s): 422517240 Time with Patient: Greater than 30
[2023-10-28 10:44] LABS: HCT 36.7 % (34.0-46.0); HGB 12.8 gm/dL (11.4-16.0); MCH 30.7 pg (25.0-35.0); MCHC 34.9 g/dL (31.0-37.0); Mean Platelet Volume 7.9; Platelet Count 329 k/uL (150-450); RBC 4.18 m/uL (3.80-5.40); RDW 14.2 % (11.5-15.5); WBC 10.6 k/uL (3.8-10.6)
[2023-10-28 11:01] LABS: African American GFR (CKD) >90 (>60 ml/min/1.73 sqM); Anion Gap 8 mmol/L; Blood Urea Nitrogen 7 mg/dL (7-17); C Reactive Protein 6.8 mg/dL (<1.0); Carbon Dioxide 24 mmol/L (22-30); Chloride 106 mmol/L (98-107); Glucose 101 mg/dL (74-99); Magnesium 2.1 mg/dL (1.6-2.3); Non-African American GFR(CKD) >90 (>60 ml/min/1.73 sqM); Potassium 2.9 mmol/L (3.5-5.1); Sodium 138 mmol/L (137-145)
--- NOTE | 2023-10-28 11:54 | P.PN ---
Subjective Progress Note Date: 10/28/23 * 28-year-old patient who is 4 days after vaginal delivery at an outside hospital presents with shortness of breath, headache, fever, chills, nasal congestion and malaise. Patient went to an urgent care where she was tested for upper respiratory tract infection including influenza as well as co ronavirus and was tested negative. Patient return to seek medical attention for worsening symptoms and was concerned for sinus infection. While at urgent care patient was given amoxicillin. Patient was also noted to have elevated blood pressure and was sent to ER from the urgent care to monitor for preeclampsia * At the time of presentation in ER blood work was obtained which showed e levated liver profile including AST of 60 ALT 38 LDH of 452 WBC count of 12.4. Blood pressure was noted to be elevated with systolic blood pressure in 170s. * Patient was given 1 dose of IV labetalol and significant improvement in blood pressure was noted. Workup obtained in ED included a chest x-ray which showed left lung opacity consideration for pneumonia. Small left-sided pleural effusion was noted * Patient was given IV antibiotic including Rocephin and azithromycin and was escalated to IV Zosyn blood cultures urine cultures requested * Due to elevated blood pressure echocardiogram was ordered as well * 10/28/23: Patient seen and evaluated bedside, patient is tearful however patient counseled patient does feel better blood work reviewed, low potassium levels replace, will follow-up on liver profile continue to monitor blood pressure on labetalol nursing staff instructed to monitor pressure once patient is less distressed REVIEW OF SYSTEMS: Shortness of breath, headache, sinus congestion IMPROVED CONSTITUTIONAL: No fever, no malaise, no fatigue. HEENT: No recent visual problems or hearing problems. Denied any sore throat. CARDIOVASCULAR: No chest pain, orthopnea, PND, no palpitations, no syncope. PULMONARY: Shortness of breath, headache, sinus congestion IMPROVED GASTROINTESTINAL: No diarrhea, no nausea, no vomiting, no abdominal pain. NEUROLOGICAL: No headaches, no weakness, no numbness. HEMATOLOGICAL: Denies any bleeding or petechiae. GENITOURINARY: Denies any burning micturition, frequency, or urgency. MUSCULOSKELETAL/RHEUMATOLOGICAL: Denies any joint pain, swelling, or any muscle pain. ENDOCRINE: Denies any polyuria or polydipsia. PHYSICAL EXAMINATION: GENERAL: The patient is alert and oriented x3, ill appearance HEENT: Pupils are round and equally reacting to light. EOMI. Normocephalic, atraumatic. No pharyngeal erythema. No thyromegaly. CARDIOVASCULAR: S1 and S2 present. No murmurs, rubs, or gallops. PULMONARY: Improved air entry bilaterally ABDOMEN: Soft, nontender, nondistended, normoactive bowel sounds. No palpable organomegaly. MUSCULOSKELETAL: No joint swelling or deformity. EXTREMITIES: No cyanosis, clubbing, or pedal edema. NEUROLOGICAL: Gross neurological examination did not reveal any focal deficits. SKIN: No rashes. Assessment and plan * Left lower lobe pneumonia * Post preeclampsia * Sepsis secondary to pneumonia * Elevated liver enzymes secondary to preeclampsia * Hyponatremia and hypokalemia * Regards to left lower lobe pneumonia, continue patient on IV Zosyn, appreciate input from infectious disease as well follow-up on urine Legionella and streptococcal antigen ordered * Regards to preeclampsia continue patient on labetalol 200 mg twice daily, as needed IV hydralazine ordered, patient remains on room air PUSHER RUNNER primary. Cardiology consulted echocardiogram ordered shows ejection fraction of 50% * Regards to sepsis, blood cultures urine cultures follow-up * In regards to hyponatremia and hypokalemia follow-up on metabolic panel, potassium replaced * Code status is full code Objective - Vital Signs Vital signs: Vital Signs Temp 98.6 F 10/28/23 10:10 Pulse 68 10/28/23 10:10 Resp 16 10/28/23 10:10 BP 151/92 10/28/23 10:10 Pulse Ox 96 10/28/23 10:10 FiO2 Intake & Output 10/27/23 10/28/23 10/28/23 18:59 06:59 18:59 Intake Total 500 Balance 500 Weight 99.79 kg Intake: Intake, IV Titration 500 Amount Magnesium Sulfate-Water 500 Pmx 20 gm In Water For Injection 1 500ml.bag @ 2 GM/HR 50 mls/hr IV .Q10H [facility] Rx#:[id number] - Labs CBC & Chem 7: 10/28/23 10:31 10/28/23 10:31 Labs: Abnormal Lab Results - Last 24 Hours (Table) 10/28/23 Range/Units 10:31 Potassium 2.9 L (3.5-5.1) mmol/L Glucose 101 H (74-99) mg/dL Calcium 8.0 L (8.4-10.2) mg/dL C-Reactive Protein 6.8 H (<1.0) mg/dL Microbiology - Last 24 Hours (Table) 10/26/23 16:20 Blood Culture - Preliminary Blood 10/26/23 16:35 Blood Culture - Preliminary Blood 10/26/23 17:15 Urine Culture - Preliminary Urine,Voided Gram Neg Bacilli
[2023-10-28] MEDS: POTASSIUM CHLORIDE ER 20 MEQ TAB.ER PO STA (12:09)
[2023-10-28] MEDS: POTASSIUM CHLORIDE 10 MEQ in WATER FOR INJECTION 1 100ML.BAG IVPB SCH (12:12)
--- NOTE | 2023-10-28 14:56 | P.PN ---
Subjective Progress Note Date: 10/28/23 Principal diagnosis: Acute left upper lobe pneumonia, hospital-acquired versus aspiration pneumonia This is a very pleasant 28-year-old female patient with no significant past me dical history who had just delivered a baby girl on October 22, 2023 at [facility] [place] without complication. Following her discharge she had developed increased sinus congestion, cough, congestion and had been seen at a urgent care x 2. The second time she was found to be hypertensive with blood pressures averaging 160/100 and was referred to the emergency room here for the same. There was some concern regarding possible preeclampsia. Did receive magnesium. She was initiated on labetalol 200 mg twice daily. Chest x-ray did reveal a left lung airspace opacity in the mid lung region. Small left pleural effusion. White count 12.7. Hemoglobin 12.8. Sodium 133. Potassium 3.3. Bicarb 23. BUN 7. Creatinine 0.65. Initial magnesium 1.5. Currently 4.5. Troponin negative. AST 60. ALT 38. proBNP 1150. Viral screen negative. Urinalysis with high WBCs and moderate bacteria. Echocardiogram revealed preserved left ventricular systolic function with ejection fraction 50 to 55%. Mild mitral regurgitation with mild pulmonary hypertension. He is seen today in consultatio n in the emergency department. Initially to be admitted to the intensive care unit. She is sitting up in bed. She is awake and alert in no acute distress. She is maintaining O2 saturations in the 90s on room air. Blood pressure has improved with mean arterial pressures 80-90. Denies any headache. Denies any shortness of breath. She does have an occasional cough, nonproductive. Initial temperature 101.5. Currently afebrile. He was initiated on ceftriaxone. She received 3 L of fluid resuscitation. Currently normal saline at 130 MLS per hour Patient was reevaluated today on 10/28/2023, feeling better nonetheless continues to have cough, it is productive with yellow phlegm, no fever, no chills, O2 saturation 96% on room air. Patient is hemodynamically stable, blood pressure is 151/92, patient remains on blood pressure medications for her preeclampsia patient had negative screening for Legionella antigen her WBC count is 10.6 hemoglobin 12.8 basic metabolic profile is normal except for low potassium being addressed by the admitting physician, magnesium is 2.1 today. Plan to have repeat chest x-ray in a.m. Objective - Vital Signs Vital signs: Vital Signs Temp 98.6 F 10/28/23 10:10 Pulse 68 10/28/23 10:10 Resp 16 10/28/23 10:10 BP 151/92 10/28/23 10:10 Pulse Ox 96 10/28/23 10:10 FiO2 Intake & Output 10/27/23 10/28/23 10/28/23 18:59 06:59 18:59 Intake Total 500 Balance 500 Weight 99.79 kg Intake: Intake, IV Titration 500 Amount Magnesium Sulfate-Water 500 Pmx 20 gm In Water For Injection 1 500ml.bag @ 2 GM/HR 50 mls/hr IV .Q10H [facility] Rx#:[id number] - Exam General: The patient is awake and alert, in no distress, and does not appear acutely ill. On room air O2 sat is 96% Skin: Skin is warm and dry and no rashes or lesions are noted. Eye: Pupils are equal, round and reactive to light, extra-ocular movements are intact; there is normal conjunctiva bilaterally. Ears, nose, mouth and throat: There are moist mucous membranes and no oral les ions. Neck: The neck is supple, there is no tenderness or JVD. Cardiovascular: There is a regular rate and rhythm. No murmur, rub or gallop is appreciated. Respiratory: Clear throughout no crackles rhonchi or wheezes Gastrointestinal: Soft, non-distended, non-tender abdomen without masses or organomegaly noted. There is no rebound or guarding present. Bowel sounds are unremarkable. Back: There is no tenderness to palpation in the midline. There is no obvious deformity. Musculoskeletal: Normal ROM, no tenderness, There is no pedal edema. There is no calf tenderness or swelling. No cords were appreciated. Neurological: CN II-XII intact, Cranial nerves III through XII are intact. T here are no obvious motor or sensory deficits. Coordination appears grossly intact. Speech is normal. Psychiatric: Cooperative, appropriate mood & affect, normal judgment. - Labs CBC & Chem 7: 10/28/23 10:31 10/28/23 10:31 Labs: Abnormal Lab Results - Last 24 Hours (Table) 10/28/23 Range/Units 10:31 Potassium 2.9 L (3.5-5.1) mmol/L Glucose 101 H (74-99) mg/dL Calcium 8.0 L (8.4-10.2) mg/dL C-Reactive Protein 6.8 H (<1.0) mg/dL Microbiology - Last 24 Hours (Table) 10/26/23 16:20 Blood Culture - Preliminary Blood 10/26/23 16:35 Blood Culture - Preliminary Blood 10/26/23 17:15 Urine Culture - Preliminary Urine,Voided Gram Neg Bacilli Assessment and Plan Assessment: Impression: Febrile illness with cough and congestion, sinus congestion in a patient found to have left midlung infiltrate/pneumonia, suspect hospital-acquired versus aspiration day number 6 following a uncomplicated vaginal on 10/22/2023 Hypertension, concern regarding possible pre-eclampsia being followed by W[employer] 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 Improved with labetalol Hypomagnesemia, received supplements and improved Mild transaminitis of unclear etiology Possible urinary tract infection Recommendation: Continue present supportive care measures, Continue Zosyn Continue to monitor blood pressure and electrolytes as well as potassium and magnesium and correct accordingly Repeat chest x-ray in a.m. Consider discharge planning in the next 24 to 48 hours.
--- NOTE | 2023-10-28 15:09 | P.PN ---
Subjective Progress Note Date: 10/28/23 Principal diagnosis: Reason for follow-up is pneumonia 10/28/2023,the patient did have resolution of her fever and is afebrile today, patient is on room air not requiring supplemental oxygen and denies any shortness of breath no chest pain cough has decreased in intensity and remains to be dry in nature patient denies having any nausea or vomiting, no abdominal pain and no diarrhea has been reported. Patient white count normalized to 10.6, creatinine 0.66 urine for Legionella antigen negative urine culture with gram-negative blood cultures are pending Objective - Vital Signs Vital signs: Vital Signs Temp 98.6 F 10/28/23 10:10 Pulse 68 10/28/23 10:10 Resp 16 10/28/23 10:10 BP 151/92 10/28/23 10:10 Pulse Ox 96 10/28/23 10:10 FiO2 Intake & Output 10/27/23 10/28/23 10/28/23 18:59 06:59 18:59 Intake Total 500 Balance 500 Weight 99.79 kg Intake: Intake, IV Titration 500 Amount Magnesium Sulfate-Water 500 Pmx 20 gm In Water For Injection 1 500ml.bag @ 2 GM/HR 50 mls/hr IV .Q10H [facility] Rx#:[id number] - Exam GENERAL DESCRIPTION: Middle-aged female up in bed in no distress RESPIRATORY SYSTEM: Unlabored breathing , decreased breath sounds at bases HEART: S1 S2 regular rate and rhythm , ABDOMEN: Soft , no tenderness EXTREMITIES: No edema feet - Labs CBC & Chem 7: 10/28/23 10:31 10/28/23 10:31 Labs: Abnormal Lab Results - Last 24 Hours (Table) 10/28/23 Range/Units 10:31 Potassium 2.9 L (3.5-5.1) mmol/L Glucose 101 H (74-99) mg/dL Calcium 8.0 L (8.4-10.2) mg/dL C-Reactive Protein 6.8 H (<1.0) mg/dL Microbiology - Last 24 Hours (Table) 10/26/23 16:20 Blood Culture - Preliminary Blood 10/26/23 16:35 Blood Culture - Preliminary Blood 10/26/23 17:15 Urine Culture - Preliminary Urine,Voided Gram Neg Bacilli Assessment and Plan (1) Pneumonia Current Visit: Yes Status: Acute Code(s): J18.9 - PNEUMONIA, UNSPECIFIED ORGANISM SNOMED Code(s): 301089565 Plan: 1patient presented to hospital with sepsis in this patient who did have a fever elevated white count source is left-sided pneumonia with a question of possible community-acquired versus gram-negative as the patient recently did have admission at [facility] did have a preeclampsia 2-sputum could not be obtained patient white count normalized to continue with the with Zosyn, hopefully transition to oral antibiotics on discharge Dictation was produced using [employer] dictation software. please excuse any grammatical, word or spelling errors. Time with Patient: Less than 30
[2023-10-28] MEDS: ACETAMINOPHEN TAB 325 MG TAB PO PRN (16:44)
[2023-10-29] MEDS: guaiFENesin SYRUP 100MG/5ML 200 MG/10 ML CUP PO PRN (00:02)
[2023-10-29] MEDS: hydrALAZINE HCL 20 MG/ML 1 ML VIAL IVP PRN (06:12)
[2023-10-29 07:24] LABS: HCT 39.1 % (34.0-46.0); HGB 12.8 gm/dL (11.4-16.0); MCH 29.5 pg (25.0-35.0); MCHC 32.7 g/dL (31.0-37.0); MCV 90.3 fL (80.0-100.0); Mean Platelet Volume 7.5; Platelet Count 378 k/uL (150-450); RBC 4.33 m/uL (3.80-5.40); RDW 13.7 % (11.5-15.5); WBC 9.4 k/uL (3.8-10.6)
[2023-10-29 07:46] LABS: ALT 26 U/L (4-34); AST 20 U/L (14-36); African American GFR (CKD) >90 (>60 ml/min/1.73 sqM); Albumin 3.1 g/dL (3.5-5.0); Alkaline Phosphatase 118 U/L (38-126); Anion Gap 9 mmol/L; Blood Urea Nitrogen 8 mg/dL (7-17); Calcium 8.4 mg/dL (8.4-10.2); Carbon Dioxide 24 mmol/L (22-30); Chloride 108 mmol/L (98-107); Glucose 91 mg/dL (74-99); Non-African American GFR(CKD) >90 (>60 ml/min/1.73 sqM); Potassium 3.1 mmol/L (3.5-5.1); Sodium 141 mmol/L (137-145); Total Bilirubin 0.6 mg/dL (0.2-1.3); Total Protein 5.9 g/dL (6.3-8.2)
--- NOTE | 2023-10-29 07:59 | XR ---
EXAMINATION TYPE: XR chest 1V portable DATE OF EXAM: 10/29/2023 COMPARISON: 10/27/2019 HISTORY: Cough TECHNIQUE: Single frontal view of the chest is obtained. FINDINGS: Masslike consolidation left upper lobe with bilateral lower lobe infiltrate and small effu freddy. No pneumothorax. Osseous structures are stable. IMPRESSION: 1. Stable large consolidation left upper lobe with bilateral lower lobe infiltrate and small effusion . Correlation. Underlying mass not excluded. 2. Interstitial prominence correlate for interstitial pneumonitis or mild venous congestion
[2023-10-29] MEDS: POTASSIUM CHLORIDE ER 20 MEQ TAB.ER PO STA (11:06)
[2023-10-29 11:10] LABS: C Reactive Protein 4.8 mg/dL (<1.0)
--- NOTE | 2023-10-29 12:33 | P.PN ---
Subjective Progress Note Date: 10/29/23 Principal diagnosis: preeclampsia and pneumonia Luz is on tearful and frustrated, wanting discharge home. She reports her bleeding continues to improve. She is no longer on oxygen. She has been afebrile. Her white blood cell count has normalized as has her AST and ALT. She does have mild hypokalemia. Chest x-ray continues to show left upper lobe infiltrate and her urine grew out E. coli. Blood cultures are negative 48 hours. She is on day 3 of Zosyn intravenously. She has had some elevated blood pressures in the 150s to 160s over 90s through the night last night and was given IV hydralazine 1. She is currently on labetalol 200 mg twice a day. C urrently 135/83. Luz is feeling significantly better this morning. She no longer feels short of breath. She is complaining of some sinus congestion and mild headache. She is using the breast pump successfully. Minimal lochia. She denies visual changes. She reports significantly improved bilateral lower extremity swelling. Objective - Vital Signs Vital signs: Vital Signs Temp 97.9 F 10/29/23 11:05 Pulse 65 10/29/23 11:05 Resp 16 10/29/23 11:05 BP 135/83 10/29/23 11:05 Pulse Ox 96 10/29/23 11:05 FiO2 Intake & Output 10/28/23 10/29/23 10/29/23 18:59 06:59 18:59 Intake Total 480 240 Balance 480 240 Weight 99.79 kg Intake: Oral 480 240 Other: # Voids 2 2 1 - Constitutional General appearance: Present: average body habitus, no acute distress - Respiratory Respiratory: right: CTA, left: diminished - Cardiovascular Rhythm: regular - Gastrointestinal General gastrointestinal: Present: soft - Labs CBC & Chem 7: 10/29/23 06:56 10/29/23 06:56 Labs: Abnormal Lab Results - Last 24 Hours (Table) 10/29/23 Range/Units 06:56 Potassium 3.1 L (3.5-5.1) mmol/L Chloride 108 H (98-107) mmol/L C-Reactive Protein 4.8 H (<1.0) mg/dL Total Protein 5.9 L (6.3-8.2) g/dL Albumin 3.1 L (3.5-5.0) g/dL Microbiology - Last 24 Hours (Table) 10/26/23 16:20 Blood Culture - Preliminary Blood 10/26/23 16:35 Blood Culture - Preliminary Blood 10/26/23 17:15 Urine Culture - Final Urine,Voided Escherichia coli - Imaging and Cardiology Chest x-ray: report reviewed Assessment and Plan (1) Pneumonia Narrative/Plan: Left upper lobe. She is currently afebrile on day 3 of zosyn. Normal WBC and afebrile. . Current Visit: Yes Status: Acute Code(s): J18.9 - PNEUMONIA, UNSPECIFIED ORGANISM SNOMED Code(s): 592164173 (2) Pre-eclampsia, Narrative/Plan: The patient's blood pressures have ranged from the 130s to 160s over 80s to 90s. She is asymptomatic. Her preeclamptic labs have normalized. I would recommend adding a secondary agent such as Procardia XL or increase in labetalol to 3 times a day dosing. I believe she is stable for discharge home from an obstetric standpoint with follow-up with her regular television script writer in 48 hours for blood pressure check. Status post 24 hours magnesium sulfate seizure prophylaxis. Her blood pressures had normalized however this morning she had an elevated blood pressure of 150/104 despite labetalol 200 mg by mouth twice a day. She has prn hydralazine available. Clinically she has minimal to no edema, no hyperreflexia or other concerning symptoms of ongoing preeclampsia. Labs pending. She will likely need to be discharged home on antihypertensives for the short-term with close follow- up with her primary television script writer. Current Visit: Yes Status: Acute Code(s): O14.95 - UNSPECIFIED PRE- ECLAMPSIA, COMPLICATING THE PUERPERIUM SNOMED Code(s): 965334701 Time with Patient: Less than 30
--- NOTE | 2023-10-29 14:56 | P.PN ---
Subjective Progress Note Date: 10/29/23 This is a very pleasant 28-year-old female patient with no significant past medical history who had just delivered a baby girl on October 22, 2023 at [facility] without complication. Following her discharge she had developed increased sinus congestion, cough, congestion and had been seen at a urgent care x 2. The second time she was found to be hypertensive with blood pressures averaging 160/100 and was referred to the emergency room here for the same. There was some concern regarding possible preeclampsia. Did receive magnesium. She was initiated on labetalol 200 mg twice daily. Chest x-ray did reveal a left lung airspace opacity in the mid lung region. Small left pleural effusion. White count 12.7. Hemoglobin 12.8. Sodium 133. Potassium 3.3. Bicarb 23. BUN 7. Creatinine 0.65. Initial magnesium 1.5. Currently 4.5. Troponin negative. AST 60. ALT 38. proBNP 1150. Viral screen negative. Urinalysis with high WBCs and moderate bacteria. Echocardiogram revealed preserved left ventricular systolic function with ejection fraction 50 to 55%. Mild mitral regurgitation with mild pulmonary hypertension. He is seen today in consultation in the emergency department. Initially to be admitted to the intensive care unit. She is sitting up in bed. She is awake and alert in no acute distress. She is maintaining O2 saturations in the 90s on room air. Blood pressure has improved with mean arterial pressures 80-90. Denies any headache. Denies any shortness of breath. She does have an occasional cough, nonproductive. Initial temperature 101.5. Currently afebrile. He was initiated on ceftriaxone. She received 3 L of fluid resuscitation. Currently normal saline at 130 MLS per hour Patient was reevaluated today on 10/28/2023, feeling better nonetheless continues to have cough, it is productive with yellow phlegm, no fever, no chills, O2 saturation 96% on room air. Patient is hemodynamically stable, blood pressure is 151/92, patient remains on blood pressure medications for her preeclampsia patient had negative screening for Legionella antigen her WBC count is 10.6 hemoglobin 12.8 basic metabolic profile is normal except for low pota ssium being addressed by the admitting physician, magnesium is 2.1 today. Plan to have repeat chest x-ray in a.m. The patient is seen today October 29, 2023 in follow-up on the [facility] floor. She is sitting up in bed. Awake and alert in no acute distress. She denies any worsening shortness of breath, cough or congestion. She is maintaining good O2 saturations in the 90s on room air. No fever or chills. Chest x-ray is showing improvement. Still issues with hypertension. Medica tions are being adjusted. White count 9.4. Hemoglobin 12.8. Platelets 378. Sodium 141. Potassium 3.1. Bicarb 24. BUN 8. Creatinine 0.76. Glucose 118. Procalcitonin was negative at 0.07. Objective - Vital Signs Vital signs: Vital Signs Temp 97.9 F 10/29/23 11:05 Pulse 65 10/29/23 11:05 Resp 16 10/29/23 11:05 BP 135/83 10/29/23 11:05 Pulse Ox 96 10/29/23 11:05 FiO2 Intake & Output 10/28/23 10/29/23 10/29/23 18:59 06:59 18:59 Intake Total 480 240 Balance 480 240 Weight 99.79 kg Intake: Oral 480 240 Other: # Voids 2 2 1 - Exam GENERAL EXAM: Alert, pleasant 28-year-old female, on room air, comfortable in no apparent distress. HEAD: Normocephalic. EYES: Normal reaction of pupils, equal size. NOSE: Clear with pink turbinates. THROAT: No erythema or exudates. NECK: No masses, no JVD. CHEST: No chest wall deformity. LUNGS: Equal air entry with scattered rhonchi over the left midlung. CVS: S1 and S2 normal with no audible murmur, regular rhythm. ABDOMEN: Post . No hepatosplenomegaly, normal bowel sounds, no guarding or rigidity. SPINE: No scoliosis or deformity SKIN: No rashes CENTRAL NERVOUS SYSTEM: No focal deficits, tone is normal in all 4 extremities. EXTREMITIES: There is 1+ peripheral edema. No clubbing, no cyanosis. Peripheral pulses are intact. - Labs CBC & Chem 7: 10/29/23 06:56 10/29/23 06:56 Labs: Abnormal Lab Results - Last 24 Hours (Table) 10/29/23 Range/Units 06:56 Potassium 3.1 L (3.5-5.1) mmol/L Chloride 108 H (98-107) mmol/L C-Reactive Protein 4.8 H (<1.0) mg/dL Total Protein 5.9 L (6.3-8.2) g/dL Albumin 3.1 L (3.5-5.0) g/dL Microbiology - Last 24 Hours (Table) 10/26/23 16:20 Blood Culture - Preliminary Blood 10/26/23 16:35 Blood Culture - Preliminary Blood 10/26/23 17:15 Urine Culture - Final Urine,Voided Escherichia coli Assessment and Plan Assessment: Febrile illness with cough and congestion, sinus congestion in a patient found to have left midlung infiltrate/pneumonia, suspect hospital-acquired versus aspiration day #7 following a uncomplicated vaginal on 10/22/2023 Hypertension, concern regarding possible pre-eclampsia being followed by [facility]. Improved with labetalol Hypomagnesemia, received supplements and improved Mild transaminitis of unclear etiology Possible urinary tract infection Plan: The patient was seen and evaluated Chest x-ray, labs and medications reviewed Stable and on room air Blood pressure medications being adjusted Probable discharge in a.m. We will continue to follow I have personally seen and examined the patient, performed the documentation and the assessment and plan as written. Number of minutes spent on the visit: 10.
--- NOTE | 2023-10-29 16:19 | P.PN ---
Progress Note - Text Progress Note Date: 10/29/23 * 28-year-old patient who is 4 days after vaginal delivery at an outside hospital presents with shortness of breath, headache, fever, chills, nasal congestion and malaise. Patient went to an urgent care where she was tested for upper respiratory tract infection including influenza as well as coronavirus and was tested negative. Patient return to seek medical attention for worsening symptoms and was concerned for sinus infection. While at urgent care patient was given amoxicillin. Patient was also noted to have elevated blood pressure and was sent to ER from the urgent care to monitor for preeclampsia * At the time of presentation in ER blood work was obtained which showed elevated liver profile including AST of 60 ALT 38 LDH of 452 WBC count of 12.4. Blood pressure was noted to be elevated with systolic blood pressure in 170s. * Patient was given 1 dose of IV labetalol and significant improvement in blood pressure was noted. Workup obtained in ED included a chest x-ray which showed left lung opacity consideration for pneumonia. Small left-sided pleural effusion was noted * Patient was given IV antibiotic including Rocephin and azithromycin and was escalated to IV Zosyn blood cultures urine cultures requested * Due to elevated blood pressure echocardiogram was ordered as well * 10/28/23: Patient seen and evaluated bedside, patient is tearful however patient counseled patient does feel better blood work reviewed, low potassium levels replace, will follow-up on liver profile continue to monitor blood pressure on labetalol nursing staff instructed to monitor pressure once patient is less distressed October 28: Patient did ambulate around the room. Feeling better. This morning blood pressure a bit higher but this late afternoon systolic in the 130s. On labetalol. Ate well. Patient is doing breast pumping. Has a bit of a cough. Appetite good. Comfortable. Patient denies any medical conditions growing up. Otherwise rather healthy all her life. Active Medications Acetaminophen (Acetaminophen Tab 325 Mg Tab) 650 mg PO Q4HR PRN PRN Reason: Mild Pain or Fever >= 100.5 Last Admin: 10/29/23 07:59 Dose: 650 mg Guaifenesin (Guaifenesin Syrup 100mg/5ml 200 Mg/10 Ml Cup) 200 mg PO Q6HR PRN PRN Reason: Cough Last Admin: 10/29/23 00:02 Dose: 200 mg Hydralazine HCl (Hydralazine Hcl 20 Mg/Ml 1 Ml Vial) 10 mg IVP Q6HR PRN PRN Reason: Blood Pressure - High Last Admin: 10/29/23 06:12 Dose: 10 mg Piperacillin Sod/Tazobactam (Sod 3.375 gm/ Sodium Chloride) 100 mls @ 25 mls/hr IVPB Q8HR SAL; Protocol Stop: 11/03/23 09:46 Last Admin: 10/29/23 08:00 Dose: 25 mls/hr Ibuprofen (Ibuprofen 400 Mg Tab) 400 mg PO Q6HR PRN PRN Reason: Mild Pain or Fever > 100.5 Last Admin: 10/28/23 23:04 Dose: 400 mg Labetalol HCl (Labetalol 200 Mg Tab) 200 mg PO BID SAL Last Admin: 10/29/23 07:59 Dose: 200 mg Miscellaneous Information (Pneumonia Protocol Utilized 1 Each Misc) 1 each PO ONCE PRN PRN Reason: Per Protocol Naloxone HCl (Naloxone 0.4 Mg/Ml 1 Ml Vial) 0.2 mg IV Q2M PRN PRN Reason: Opioid Reversal On examination: VITAL SIGNS: [97.9, 65, 16, 1 3583, 96% room air] GENERAL APPEARANCE: Sitting up in bed awake comfortable HEENT: Normal external appearance of nose and ear. Oral cavity normal EYES: Pupils equal. Conjunctiva normal. NECK: JVD not raised. Mass not palpable. RESPIRATORY: Respiratory effort normal. Lungs clear to auscultation. CARDIOVASCULAR: First and second sounds normal. Minimal if any edema. ABDOMEN: Soft. Liver and spleen not palpable. No tenderness. No mass palpable. PSYCHIATRY: Alert and oriented x3. Mood and affect normal. INVESTIGATIONS, reviewed in the clinical context: October 29, 2023: White count 9.4 hemoglobin 12.8 platelets 378 potassium 3.1 BUN 8 creatinine 0.76 AST 20 ALT 26 proBNP 60 procalcitonin 0.07 Urine Legionella antigen negative 2D echocardiogram: EF 50 to 55%.Moderate tricuspid regurgitation. Hypokinetic right ventricle. October 25: AST 60 ALT 38. . Influenza type A, type B, RSV, COVID-19: Not detected Assessment and plan * Left lower lobe pneumonia * Post preeclampsia * Sepsis secondary to pneumonia * Hepatitis secondary to preeclampsia * Hyponatremia and hypokalemia -, vaginal, first delivery. Patient is breast pumping. This afternoon patient's blood pressure is coming down to. Will watch overnight. If blood pressure remains settle should be able to be discharged tomorrow. Discussed with patient. Increase activity. Results of echocardiogram discussed with Dr. Fortune from cardiology. Clinically patient doing well. Will have the patient to follow-up with him in about 4 to 6 weeks.
[2023-10-29] MEDS: LABETALOL 200 MG TAB PO STA (16:55)
[2023-10-29] MEDS: FUROSEMIDE 20 MG TAB PO STA (16:55)
--- NOTE | 2023-10-29 17:49 | P.PN ---
Subjective Progress Note Date: 10/29/23 Principal diagnosis: Reason for follow-up is pneumonia Patient is a 28-year-old female who is presenting to the hospital with increasing shortness of breath and cough diagnosed with a sepsis secondary to pneumonia. On today's evaluation that is 10/29/2023, the patient continues to be afebrile, the patient is on room air and breathing comfortably, the Pt denies having any chest pain cough is decreased in intensity and remains to be dry in nature, the patient denies having any abdominal pain no vomiting or any diarrhea, feeling better. Patient white count is 9.4, creatinine 0.76 Objective - Vital Signs Vital signs: Vital Signs Temp 97.9 F 10/29/23 11:05 Pulse 65 10/29/23 11:05 Resp 16 10/29/23 11:05 BP 135/83 10/29/23 11:05 Pulse Ox 96 10/29/23 11:05 FiO2 Intake & Output 10/28/23 10/29/23 10/29/23 18:59 06:59 18:59 Intake Total 480 240 Balance 480 240 Weight 99.79 kg Intake: Oral 480 240 Other: # Voids 2 2 1 - Exam GENERAL DESCRIPTION: Middle-aged female up in bed in no distress RESPIRATORY SYSTEM: Unlabored breathing , decreased breath sounds at bases HEART: S1 S2 regular rate and rhythm , ABDOMEN: Soft , no tenderness EXTREMITIES: No edema feet - Labs CBC & Chem 7: 10/29/23 06:56 10/29/23 06:56 Labs: Abnormal Lab Results - Last 24 Hours (Table) 10/29/23 Range/Units 06:56 Potassium 3.1 L (3.5-5.1) mmol/L Chloride 108 H (98-107) mmol/L C-Reactive Protein 4.8 H (<1.0) mg/dL Total Protein 5.9 L (6.3-8.2) g/dL Albumin 3.1 L (3.5-5.0) g/dL Microbiology - Last 24 Hours (Table) 10/26/23 16:20 Blood Culture - Preliminary Blood 10/26/23 16:35 Blood Culture - Preliminary Blood 10/26/23 17:15 Urine Culture - Final Urine,Voided Escherichia coli Assessment and Plan (1) Pneumonia Current Visit: Yes Status: Acute Code(s): J18.9 - PNEUMONIA, UNSPECIFIED ORGANISM SNOMED Code(s): 702016430 Plan: 1patient presented to hospital with sepsis in this patient who did have a fever elevated white count source is left-sided pneumonia with a question of possible community-acquired versus gram-negative as the patient recently did have admission at [facility] did have a preeclampsia 2-sputum could not be obtained patient white count normalized, urine is growing E. coli that is a sensitive pathogen 3patient is currently being treated with Zosyn, hopefully transition to oral Ceftin on discharge Dictation was produced using [email or web address] dictation software. please excuse any grammatical, word or spelling errors. Time with Patient: Less than 30
[2023-10-29] MEDS: ALPRAZolam 0.5 MG TAB PO STA (20:56)
[2023-10-29] MEDS: LABETALOL 200 MG TAB PO SCH (23:00)
--- NOTE | 2023-10-30 08:12 | XR ---
EXAMINATION TYPE: XR chest 1V portable DATE OF EXAM: 10/30/2023 COMPARISON: 10/29/2023 HISTORY: Cough TECHNIQUE: Single frontal view of the chest is obtained. FINDINGS: Bilateral areas of infiltrate are stable. Tiny left pleural effusion. Underlying superimpo sed interstitial pneumonitis or venous congestion in the differential diagnosis. Heart size mildly pr ominent. No pneumothorax. Osseous structures stable. IMPRESSION: 1. Stable large consolidation left upper lobe with bilateral lower lobe infiltrate and small effusion . Correlate for pneumonia. 2. Interstitial prominence correlate for superimposed interstitial pneumonitis or mild venous congest ion
[2023-10-30 09:19] VITALS: TEMP 97.7
[2023-10-30] MEDS: AMOXIC-POT CLAV 875-125MG 1 EACH TAB PO SCH (10:26)
--- NOTE | 2023-10-30 12:39 | P.PN ---
Subjective Progress Note Date: 10/30/23 This is a very pleasant 28-year-old female patient with no significant past medical history who had just delivered a baby girl on October 22, 2023 at [facility] without complication. Following her discharge she had developed increased sinus congestion, cough, congestion and had been seen at a urgent care x 2. The second time she was found to be hypertensive with blood pressures averaging 160/100 and was referred to the emergency room here for the same. There was some concern regarding possible preeclampsia. Did receive magnesium. She was initiated on labetalol 200 mg twice daily. Chest x-ray did reveal a left lung airspace opacity in the mid lung region. Small left pleural effusion. White count 12.7. Hemoglobin 12.8. Sodium 133. Potassium 3.3. Bicarb 23. BUN 7. Creatinine 0.65. Initial magnesium 1.5. Currently 4.5. Troponin negative. AST 60. ALT 38. proBNP 1150. Viral screen negative. Urinalysis with high WBCs and moderate bacteria. Echocardiogram revealed preserved left ventricular systolic function with ejection fraction 50 to 55%. Mild mitral regurgitation with mild pulmonary hypertension. He is seen today in consultation in the emergency department. Initially to be admitted to the intensive care unit. She is sitting up in bed. She is awake and alert in no acute distress. She is maintaining O2 saturations in the 90s on room air. Blood pressure has improved with mean arterial pressures 80-90. Denies any headache. Denies any shortness of breath. She does have an occasional cough, nonproductive. Initial temperature 101.5. Currently afebrile. He was initiated on ceftriaxone. She received 3 L of fluid resuscitation. Currently normal saline at 130 MLS per hour Patient was reevaluated today on 10/28/2023, feeling better nonetheless continues to have cough, it is productive with yellow phlegm, no fever, no chills, O2 saturation 96% on room air. Patient is hemodynamically stable, blood pressure is 151/92, patient remains on blood pressure medications for her preeclampsia patient had negative screening for Legionella antigen her WBC count is 10.6 hemoglobin 12.8 basic metabolic profile is normal except for low pota ssium being addressed by the admitting physician, magnesium is 2.1 today. Plan to have repeat chest x-ray in a.m. The patient is seen today October 29, 2023 in follow-up on the [facility] floor. She is sitting up in bed. Awake and alert in no acute distress. She denies any worsening shortness of breath, cough or congestion. She is maintaining good O2 saturations in the 90s on room air. No fever or chills. Chest x-ray is showing improvement. Still issues with hypertension. Medica tions are being adjusted. White count 9.4. Hemoglobin 12.8. Platelets 378. Sodium 141. Potassium 3.1. Bicarb 24. BUN 8. Creatinine 0.76. Glucose 118. Procalcitonin was negative at 0.07. The patient is seen today October 30, 2023 in follow-up on the [facility] floor. She is awake and alert in no acute distress. Sitting up in bed. Maintaining good O2 saturations in the 90s on room air. Follow-up chest x-ray continues to show left upper lobe consolidation with basilar infiltrates and small effusion. Blood culture revealed no growth. Urine culture positive for E. coli. Procalcitonin again negative at 0.05. She remains on Augmentin. Labetalol and a presently in for blood pressure control. Current blood pressure 124/80 with a mean of 94. She is 96% O2 saturation on room air. Afebrile. Objective - Vital Signs Vital signs: Vital Signs Temp 97.7 F 10/30/23 08:00 Pulse 90 10/30/23 08:00 Resp 18 10/30/23 08:00 BP 124/80 10/30/23 08:00 Pulse Ox 96 10/30/23 08:00 FiO2 Intake & Output 10/29/23 10/30/23 10/30/23 18:59 06:59 18:59 Intake Total 240 Balance 240 Intake: Oral 240 Other: # Voids 1 1 1 - Exam GENERAL EXAM: Alert, pleasant 28-year-old female, sitting up in bed, on room air, in no apparent distress. HEAD: Normocephalic. EYES: Normal reaction of pupils, equal size. NOSE: Clear with pink turbinates. THROAT: No erythema or exudates. NECK: No masses, no JVD. CHEST: No chest wall deformity. LUNGS: Equal air entry with scattered rhonchi over the left midlung. CVS: S1 and S2 normal with no audible murmur, regular rhythm. ABDOMEN: Post . No hepatosplenomegaly, normal bowel sounds, no guarding or rigidity. SPINE: No scoliosis or deformity SKIN: No rashes CENTRAL NERVOUS SYSTEM: No focal deficits, tone is normal in all 4 extremities. EXTREMITIES: There is 1+ peripheral edema. No clubbing, no cyanosis. Peripheral pulses are intact. - Labs CBC & Chem 7: 10/29/23 06:56 10/29/23 06:56 Labs: Microbiology - Last 24 Hours (Table) 10/26/23 16:20 Blood Culture - Preliminary Blood 10/26/23 16:35 Blood Culture - Preliminary Blood Assessment and Plan Assessment: Febrile illness with cough and congestion, sinus congestion in a patient found to have left midlung infiltrate/pneumonia, suspect hospital-acquired versus aspiration day #8 following a uncomplicated vaginal on 10/22/2023 Hypertension, concern regarding possible pre-eclampsia being followed by [employer]. Improved with labetalol Hypomagnesemia, received supplements and improved Mild transaminitis of unclear etiology Urinary tract infection secondary to E. coli Plan: The patient was seen and evaluated Chest x-ray, labs and medications reviewed Chest x-ray reviewed with Dr. Diego Guy and on room air Cleared for discharge from the pulmonary standpoint Follow-up in our office in 1 week This patient was seen independently by the pulmonary nurse practitioner addressing pulmonary issues I have personally seen and examined the patient, performed the documentation and the assessment and plan as written. Number of minutes spent on the visit: 24.
--- NOTE | 2023-10-30 13:02 | P.DS ---
Providers Date of admission: 10/26/23 18:00 Expected date of discharge: 10/30/23 Attending physician: Elizabeth Ge MD Consults: 10/27/23 09:38 Consult Physician Routine Consulting Provider: Lee Dunn Consult Reason/Comments: pneumonia, sepsis Do you want consulting provider notified?: Yes 10/29/23 08:10 Consult Physician Routine Consulting Provider: Clark De Luna Consult Reason/Comments: med mgmt Do you want consulting provider notified?: Yes Primary care physician: Jessica Chaudhary - Discharge Diagnosis(es) (1) Pneumonia Current Visit: Yes Status: Acute (2) Pre-eclampsia, Current Visit: Yes Status: Acute Hospital Course: This is a 28-year-old 1 para 1 woman who was admitted at 4 days with upper respiratory tract infection, pneumonia, preeclampsia. Respiratory: Patient was initially started on IV Zosyn with findings of left upper lobe infiltrate. Her admission WBCs were 12.4 and did normalize. She was maintained on IV antibiotics 4 days and was transitioned to oral Augmentin. She remained afebrile with significant improved respiratory status not requiring oxygen supplementation. Cardiovascular: EKG and echocardiogram within normal limits. preeclampsia: Upon admission her blood pressures were in the 170s over 100s. She received magnesium sulfate seizure prophylaxis 24 hours and IV labetalol for initial antihypertensive. She was transitioned to oral labetalol and her labs did normalize. She had no edema, hyperreflexia or visual changes. She did have a headache on and off throughout her hospitalization which was a ttributed to upper respiratory tract infection and sinuses. Her blood pressures were labile and she ultimately required 200 mg of labetalol 3 times a day with 60 mg of Procardia XL. Infectious disease: She was discharged on Augmentin. Blood cultures were negative 48 hours. Urine culture did grow out between 10 and 50,000 CFUs of E. coli. She was afebrile. Discharge exam: This pleasant female in no acute distress. HEENT exam is unremarkable but she does have some sinus congestion. Her lungs are clear to auscultation bilaterally with mild diminished breath sounds in the left upper lung hassan. Heart is a regular rate and rhythm with no detectable murmur. The abdomen is soft and the uterus is firm well below the level of the umbilicus. No right upper quadrant pain. She has trace lower extremity edema and no hyperreflexia or clonus. Her lochia is minimal. Patient Condition at Discharge: Good Plan - Discharge Summary New Discharge Prescriptions: New Labetalol [Trandate] 200 mg PO Q8H #90 tab Hydrocortisone Suppository [Anusol-Hc] 25 mg RECTAL BID #14 suppositor Amoxic-Pot Clav 875-125Mg [Augmentin 875-125] 1 each PO Q12HR 7 Days #14 tab Labetalol [Trandate] 200 mg PO TID #30 tab Ibuprofen [Motrin] 400 mg PO Q6HR PRN tab PRN Reason: Mild Pain Or Fever > 100.5 NIFEdipine XL [Procardia XL] 60 mg PO DAILY #30 tab guaiFENesin SYRUP 100MG/5ML [Robitussin] 200 mg PO Q6HR PRN ml PRN Reason: Cough Continue [id number] Acid [-U Capsule (formulary)] 1 cap PO DAILY Ferrous Sulfate [Slow Fe] 137 mg PO DAILY Discontinued Acetaminophen Tab [Tylenol Tab] 500 mg PO Q4H PRN PRN Reason: Pain Docusate [Colace] 100 mg PO DAILY Discharge Medication List Ferrous Sulfate [Slow Fe] 137 mg PO DAILY 10/27/23 [History] Ros-[id number] Acid [-U Capsule (formulary)] 1 cap PO DAILY 10/27/23 [History] Amoxic-Pot Clav 875-125Mg [Augmentin 875-125] 1 each PO Q12HR 7 Days #14 tab 10/30/23 [Rx] Hydrocortisone Suppository [Anusol-Hc] 25 mg RECTAL BID #14 suppositor 10/30/23 [Rx] Ibuprofen [Motrin] 400 mg PO Q6HR PRN tab 10/30/23 [Rx] Labetalol [Trandate] 200 mg PO Q8H #90 tab 10/30/23 [Rx] Labetalol [Trandate] 200 mg PO TID #30 tab 10/30/23 [Rx] NIFEdipine XL [Procardia XL] 60 mg PO DAILY #30 tab 10/30/23 [Rx] guaiFENesin SYRUP 100MG/5ML [Robitussin] 200 mg PO Q6HR PRN ml 10/30/23 [Rx] Follow up Appointment(s)/Referral(s): Jose Cortez MD [STAFF PHYSICIAN] - 1 Week Pennie Kidd MD [STAFF PHYSICIAN] - 6 Weeks Jessica Chaudhary DO [Primary Care Provider] - 1 Week None,Stated [REFERRING] - 1-2 Days ([facility] [place], patient's established senior project leader/team lead) Activity/Diet/Wound Care/Special Instructions: Follow-up with attending senior project leader/team lead in 24-48 hours for blood pressure check. Return to the emergency room with any severe headache, visual changes, severe abdominal pain, heavy vaginal bleeding, shortness of breath or chest pain or increase in redness or swelling of the lower extremities. Discharge Disposition: HOME SELF-CARE
[2023-10-30 13:37] VITALS: BP 120/84; PULSE 82; RESP 16
--- NOTE | 2023-10-30 14:20 | P.PN ---
Subjective Progress Note Date: 10/30/23 Principal diagnosis: Reason for follow-up is pneumonia Patient is a 28-year-old female who is presenting to the hospital with increasing shortness of breath and cough diagnosed with a sepsis secondary to pneumonia. On today's evaluation that is 10/30/2023, Patient is afebrile patient is currently on room air and denies having any shortness of breath, the patient denies any chest pain, the patient mention cough seem to be getting more lucid but still unable to cough up any sputum, the patient denies any nausea vomiting did not have any abdominal pain and no diarrhea. Patient white count of 9.4 creatinine of 0.76 as of yesterday no lab draw today blood culture has been negative Objective - Vital Signs Vital signs: Vital Signs Temp 97.7 F 10/30/23 08:00 Pulse 90 10/30/23 08:00 Resp 18 10/30/23 08:00 BP 124/80 10/30/23 08:00 Pulse Ox 96 10/30/23 08:00 FiO2 Intake & Output 10/29/23 10/30/23 10/30/23 18:59 06:59 18:59 Intake Total 240 Balance 240 Intake: Oral 240 Other: # Voids 1 1 1 - Exam GENERAL DESCRIPTION: Middle-aged female up in bed in no distress RESPIRATORY SYSTEM: Unlabored breathing , decreased breath sounds at bases HEART: S1 S2 regular rate and rhythm , ABDOMEN: Soft , no tenderness EXTREMITIES: No edema feet - Labs CBC & Chem 7: 10/29/23 06:56 10/29/23 06:56 Labs: Microbiology - Last 24 Hours (Table) 10/26/23 16:20 Blood Culture - Preliminary Blood 10/26/23 16:35 Blood Culture - Preliminary Blood Assessment and Plan (1) Pneumonia Status: Acute Code(s): J18.9 - PNEUMONIA, UNSPECIFIED ORGANISM SNOMED Code(s): 134600872 (2) E. coli UTI Status: Acute Code(s): N39.0 - URINARY TRACT INFECTION, SITE NOT SPECIFIED; B96.20 - UNSP ESCHERICHIA COLI THE CAUSE OF DISEASES [facility] SNOMED Code(s): 131838936 Plan: 1patient presented to hospital with sepsis in this patient who did have a fever elevated white count source is left-sided pneumonia with a question of possible community-acquired versus gram-negative as the patient recently did have admission at [facility] did have a preeclampsia 2-sputum could not be obtained patient white count normalized, blood culture has been negative, urine is growing E. coli that is a sensitive pathogen 3patient antibiotic has been switched over to oral Augmentin to continue to finish her course of therapy Question concern answered Dictation was produced using [employer] dictation software. please excuse any grammatical, word or spelling errors. Time with Patient: Less than 30
--- NOTE | 2023-10-30 19:12 | P.PN ---
Progress Note - Text Progress Note Date: 10/30/23 * 28-year-old patient who is 4 days after vaginal delivery at an outside hospital presents with shortness of breath, headache, fever, chills, nasal congestion and malaise. Patient went to an urgent care where she was tested for upper respiratory tract infection including influenza as well as coronavirus and was tested negative. Patient return to seek medical attention for worsening symptoms and was concerned for sinus infection. While at urgent care patient was given amoxicillin. Patient was also noted to have elevated blood pressure and was sent to ER from the urgent care to monitor for preeclampsia * At the time of presentation in ER blood work was obtained which showed elevated liver profile including AST of 60 ALT 38 LDH of 452 WBC count of 12.4. Blood pressure was noted to be elevated with systolic blood pressure in 170s. * Patient was given 1 dose of IV labetalol and significant improvement in blood pressure was noted. Workup obtained in ED included a chest x-ray which showed left lung opacity consideration for pneumonia. Small left-sided pleural effusion was noted * Patient was given IV antibiotic including Rocephin and azithromycin and was escalated to IV Zosyn blood cultures urine cultures requested * Due to elevated blood pressure echocardiogram was ordered as well * 10/28/23: Patient seen and evaluated bedside, patient is tearful however patient counseled patient does feel better blood work reviewed, low potassium levels replace, will follow-up on liver profile continue to monitor blood pressure on labetalol nursing staff instructed to monitor pressure once patient is less distressed October 28: Patient did ambulate around the room. Feeling better. This morning blood pressure a bit higher but this late afternoon systolic in the 130s. On labetalol. Ate well. Patient is doing breast pumping. Has a bit of a cough. Appetite good. Comfortable. Patient denies any medical conditions growing up. Otherwise rather healthy all her life. October 29: patient was seen this afternoon. Doing much better. Labetalol was increased to 20 mg 3 times a day. Dose of Procardia XL was ordered by Dr. Birch yesterday evening. Care was discussed length with the patient and the father at the bedside. Patient to keep a daily log of blood pressure 3 times a day until follow-up with PCP. Questions answered. Medications: Reviewed On examination: VITAL SIGNS: 97.7, 82, 16, 126/82, 97% room air GENERAL APPEARANCE: Sitting up in bed awake comfortable HEENT: Normal external appearance of nose and ear. Oral cavity normal EYES: Pupils equal. Conjunctiva normal. NECK: JVD not raised. Mass not palpable. RESPIRATORY: Respiratory effort normal. Lungs clear to auscultation. CARDIOVASCULAR: First and second sounds normal. Minimal if any edema. ABDOMEN: Soft. Liver and spleen not palpable. No tenderness. No mass palpable. PSYCHIATRY: Alert and oriented x3. Mood and affect normal. INVESTIGATIONS, reviewed in the clinical context: October 29, 2023: White count 9.4 hemoglobin 12.8 platelets 378 potassium 3.1 BUN 8 creatinine 0.76 AST 20 ALT 26 proBNP 60 procalcitonin 0.07 Urine Legionella antigen negative 2D echocardiogram: EF 50 to 55%.Moderate tricuspid regurgitation. Hypokinetic right ventricle. October 25: AST 60 ALT 38. . Influenza type A, type B, RSV, COVID-19: Not detected Assessment and plan * Left lower lobe pneumonia * Post preeclampsia * Sepsis secondary to pneumonia * Hepatitis secondary to preeclampsia * Hyponatremia and hypokalemia -, vaginal, first delivery. Patient is breast pumping. Patient to be discharged on labetalol 200 mg 3 times daily. Care was discussed at length with the patient and the father at the bedside. Questions answered. Patient has appointment tomorrow with her CONTRACTING ANALYST and to follow-up with her PCP next week. Keep a log of blood pressure. Thank you Dr. Birch
== END 2023-10-30 13:25 | disposition home or self-care (01) | DRG 776 ==
LOC: EC 15:46 → 2SICU 18:00 → 5NMEDONC 10-27 09:41 → 4FBP 10-28 09:20
PROVIDERS: ADMIT Obstetrics & Gynecology; ATTEND Obstetrics & Gynecology
DX: O85 Puerperal sepsis (principal); J18.9 Pneumonia, unspecified organism; O98.43 Viral hepatitis complicating the puerperium; B19.9 Unspecified viral hepatitis without hepatic coma; E87.1 Hypo-osmolality and hyponatremia; N39.0 Urinary tract infection, site not specified; O99.43 Diseases of the circulatory system complicating the puerperium; O86.20 Urinary tract infection following delivery, unspecified; O99.53 Diseases of the respiratory system complicating the puerperium; O14.95 Unspecified pre-eclampsia, complicating the puerperium; Y95 Nosocomial condition; O99.285 Endocrine, nutritional and metabolic diseases complicating the puerperium; E87.6 Hypokalemia; B96.20 Unspecified Escherichia coli [E. coli] as the cause of diseases classified elsewhere; R74.01 Elevation of levels of liver transaminase levels; E83.42 Hypomagnesemia; I27.20 Pulmonary hypertension, unspecified; Z79.899 Other long term (current) drug therapy
CPT/HCPCS: 36415; 51701; 71045; 71046; 80048; 80053; 81001; 83010; 83605; 83615; 83735; 83880; 84145; 84484; 84550; 85025; 85027; 85045; 85610; 85730; 86140; 87040; 87077; 87086; 87186; 87449; 87636; 93005; 93306; 96361; 96365; 96366; 96367; 96368; 96375; 99291

== ENCOUNTER 2024-02-13 19:23 | Emergency (ER) | payer OTHER ==
[2024-02-13 19:26] VITALS: TEMP 97.9
--- NOTE | 2024-02-13 20:22 | ED ---
General Adult HPI - General Chief complaint: Nausea/Vomiting/Diarrhea Stated complaint: Abd Pain,Diarrhea Time Seen by Provider: 02/13/24 20:21 Source: patient, RN notes reviewed Mode of arrival: ambulatory Limitations: no limitations - History of Present Illness Initial comments: 28-year-old female presents to the emergency department for evaluation of nausea, vomiting, diarrhea. Patient states that the symptoms started around 1:30 PM today. Patient believes that she ate something bad at [facility]. She reports that she has not been tolerating oral intake. She admits to diffuse abdominal discomfort. She does report that she is 3 months . Denies fever, chills, chest pain, shortness of breath. - Related Data Home Medications Medication Instructions Recorded Confirmed Ferrous Sulfate [Slow Fe] 137 mg PO DAILY 10/27/23 10/27/23 Uep-Sizy-Ovtsk Acid 1 cap PO DAILY 10/27/23 10/27/23 [-U Capsule (formulary)] Previous Rx's Medication Instructions Recorded Amoxic-Pot Clav 875-125Mg 1 each PO Q12HR 7 Days #14 tab 10/30/23 [Augmentin 875-125] Hydrocortisone Suppository 25 mg RECTAL BID #14 suppositor 10/30/23 [Anusol-Hc] Ibuprofen [Motrin] 400 mg PO Q6HR PRN tab 10/30/23 Labetalol [Trandate] 200 mg PO Q8H #90 tab 10/30/23 Labetalol [Trandate] 200 mg PO TID #30 tab 10/30/23 NIFEdipine XL [Procardia XL] 60 mg PO DAILY #30 tab 10/30/23 guaiFENesin SYRUP 100MG/5ML 200 mg PO Q6HR PRN ml 10/30/23 [Robitussin] Ondansetron Odt [Zofran Odt] 4 mg PO Q8HR PRN #10 tab 02/13/24 Allergies Allergy/AdvReac Type Severity Reaction Status Date / Time No Known Allergies Allergy Verified 02/13/24 19:26 Review of Systems ROS Statement: Those systems with pertinent positive or pertinent negative responses have been documented in the HPI. ROS Other: All systems not noted in ROS Statement are negative. Past Medical History Past Medical History: No Reported History History of Any Multi-Drug Resistant Organisms: None Reported Past Surgical History: Orthopedic Surgery Additional Past Surgical History / Comment(s): Left ACL 2012 Past Anesthesia/Blood Transfusion Reactions: No Reported Reaction Past Psychological History: Anxiety Smoking Status: Never smoker Past Alcohol Use History: Rare Past Drug Use History: None Reported - Past Family History Mother Family Medical History: Diabetes Mellitus General Exam - General Exam Comments Initial Comments: Visual Physical Exam Vital signs reviewed General: Well-appearing, nontoxic, no acute distress. Head: Normocephalic, atraumatic Eyes: PERRLA, EOMI ENT: Airway patent Chest: Nonlabored breathing Skin: No visual rash, normal skin tone Neuro: Alert and oriented 3 Musculoskeletal: No gross abnormalities Limitations: no limitations General appearance: alert, in no apparent distress Head exam: Present: atraumatic, normocephalic, normal inspection Eye exam: Present: normal appearance, PERRL, EOMI. Absent: scleral icterus, conjunctival injection, periorbital swelling ENT exam: Present: mucous membranes dry Neck exam: Present: normal inspection. Absent: tenderness, meningismus, lymphadenopathy Respiratory exam: Present: normal lung sounds bilaterally. Absent: respiratory distress, wheezes, rales, rhonchi, stridor Cardiovascular Exam: Present: normal rhythm, tachycardia, normal heart sounds. Absent: systolic murmur, diastolic murmur, rubs, gallop, clicks GI/Abdominal exam: Present: soft, hyperactive bowel sounds. Absent: distended, tenderness, guarding, rebound, rigid Extremities exam: Present: normal inspection, full ROM, normal capillary refill. Absent: tenderness, pedal edema, joint swelling, calf tenderness Neurological exam: Present: alert, oriented X3 Psychiatric exam: Present: normal affect, normal mood Skin exam: Present: warm, dry, intact, normal color. Absent: rash Course Vital Signs 02/13/24 02/13/24 02/13/24 19:24 21:41 22:34 Temperature 97.9 F Pulse Rate 124 H 116 H 112 H Respiratory 20 18 20 Rate Blood Pressure 135/82 111/71 100/60 O2 Sat by Pulse 97 97 97 Oximetry Medical Decision Making - Medical Decision Making Quick note preformed and electronically signed by Charla Morejon PA-C Was pt. sent in by a medical professional or institution (ROGER Gore, ADZING AND BORING MACHINE OPERATOR, urgent care, hospital, or fci...) When possible be specific @ -No Did you speak to anyone other than the patient for history (EMS, parent, family, police, friend...)? What history was obtained from this source @ -No Did you review nursing and triage notes (agree or disagree)? Why? @ -I reviewed and agree with nursing and triage notes Were old charts reviewed (outside hosp., previous admission, EMS record, old EKG, old radiological studies, urgent care reports/EKG's, fci records)? Report findings @ -No old charts were reviewed Differential Diagnosis (chest pain, altered mental status, abdominal pain women, abdominal pain men, vaginal bleeding, weakness, fever, dyspnea, syncope, headache, dizziness, GI bleed, back pain, seizure, CVA, palpatations, mental health, musculoskeletal)? @ -Differential Abdominal Pain Women: Appendicitis, Cholecystitis, diverticulosis, ischemic bowel, pancreatitis, hepatitis, UTI, gastroenteritis, AAA, incarcerated hernia, bowel obstruction, constipation, inflammatory bowel, hepatitis, peptic ulcer disease, splenic infarction, perforated viscus, vulvitis, ovarian torsion, PID, kidney stone, placenta abruption, this is not meant to be an all-inclusive list EKG interpreted by me (3pts min.). @ -None X-rays interpreted by me (1pt min.). @ -None done CT interpreted by me (1pt min.). @ -None done U/S interpreted by me (1pt. min.). @ -None done What testing was considered but not performed or refused? (CT, X-rays, U/S, labs)? Why? @ -None What meds were considered but not given or refused? Why? @ -None Did you discuss the management of the patient with other professionals (professionals i.e. , PA, ADZING AND BORING MACHINE OPERATOR, lab, RT, psych nurse, neonatal social worker, brush head maker, teacher, liaison officer, returned case inspector)? Give summary @ -No Was smoking cessation discussed for >3mins.? @ -No Was critical care preformed (if so, how long)? @ -No Were there social determinants of health that impacted care today? How? (Homelessness, low income, unemployed, alcoholism, drug addiction, transportation, low edu. Level, literacy, decrease access to med. care, custodial, rehab)? @ -No Was there de-escalation of care discussed even if they declined (Discuss DNR or withdrawal of care, Hospice)? DNR status @ -No What co-morbidities impacted this encounter? (DM, HTN, Smoking, COPD, CAD, Cancer, CVA, ARF, Chemo, Hep., AIDS, mental health diagnosis, sleep apnea, morbid obesity)? @ -None Was patient admitted / discharged? Hospital course, mention meds given and route, prescriptions, significant lab abnormalities, going to OR and other pertinent info. @ -Discharge. Patient presented to the emergency department for evaluation of nausea, vomiting, diarrhea. She admits to diffuse abdominal discomfort. On examination, patient has no focal tenderness to palpation of the abdomen. Laboratory studies obtained significant for Leukocytosis of 17.3, hemoglobin 16.1; CMP unremarkable; UA shows no evidence of infectious process, urine hCG negative, negative for COVID, influenza, RSV. Patient was provided 2 L of normal saline while in the emergency department along with medication for symptom control including Zofran and Toradol. Patient reports that her symptoms have improved following this. She will be sent home with Zofran. Patient understanding and agreeable with discharge plan. Patient stable at time of discharge. Case discussed with Dr. Subramanian Undiagnosed new problem with uncertain prognosis? @ -No Drug Therapy requiring intensive monitoring for toxicity (Heparin, Nitro, Insulin, Cardizem)? @ -No Were any procedures done? @ -No Diagnosis/symptom? @ -Gastroenteritis Acute, or Chronic, or Acute on Chronic? @ -acute Uncomplicated (without systemic symptoms) or Complicated (systemic symptoms)? @ -uncomplicated Side effects of treatment? @ -No Exacerbation, Progression, or Severe Exacerbation? @ -No Poses a threat to life or bodily function? How? (Chest pain, USA, ND, pneumonia, PE, COPD, DKA, ARF, appy, cholecystitis, CVA, Diverticulitis, Homicidal, Suicidal, threat to staff... and all critical care pts) @ -No - Lab Data Result diagrams: 02/13/24 20:50 02/13/24 20:50 Lab Results 02/13/24 02/13/24 02/13/24 Range/Units 20:50 20:50 20:50 WBC 17.3 H (3.8-10.6) k/uL RBC 5.53 H (3.80-5.40) m/uL Hgb 16.1 H (11.4-16.0) gm/dL Hct 49.5 H (34.0-46.0) % MCV 89.5 (80.0-100.0) fL MCH 29.1 (25.0-35.0) pg MCHC 32.5 (31.0-37.0) g/dL RDW 14.2 (11.5-15.5) % Plt Count 344 (150-450) k/uL MPV 7.3 Neutrophils % 93 % Lymphocytes % 2 % Monocytes % 3 % Eosinophils % 1 % Basophils % 1 % Neutrophils # 16.0 H (1.3-7.7) k/uL Lymphocytes # 0.4 L (1.0-4.8) k/uL Monocytes # 0.5 (0-1.0) k/uL Eosinophils # 0.2 (0-0.7) k/uL Basophils # 0.1 (0-0.2) k/uL Sodium 140 (137-145) mmol/L Potassium 4.5 (3.5-5.1) mmol/L Chloride 103 (98-107) mmol/L Carbon Dioxide 27 (22-30) mmol/L Anion Gap 10 mmol/L BUN 17 (7-17) mg/dL Creatinine 0.71 (0.52-1.04) mg/dL Est GFR (CKD-EPI)AfAm >90 (>60 ml/min/1.73 sqM) Est GFR (CKD-EPI)NonAf >90 (>60 ml/min/1.73 sqM) Glucose 141 H (74-99) mg/dL Calcium 9.6 (8.4-10.2) mg/dL Total Bilirubin 1.3 (0.2-1.3) mg/dL AST 26 (14-36) U/L ALT 31 (4-34) U/L Alkaline Phosphatase 105 (38-126) U/L Total Protein 8.0 (6.3-8.2) g/dL Albumin 4.9 (3.5-5.0) g/dL Amylase 54 (30-110) U/L Lipase 47 (23-300) U/L Urine Color Yellow Urine Appearance Clear (Clear) Urine pH 6.0 (5.0-8.0) Ur Specific [place] 1.028 (1.001-1.035) Urine Protein Trace H (Negative) Urine Glucose (UA) Negative (Negative) Urine Ketones Negative (Negative) Urine Blood Negative (Negative) Urine Nitrite Negative (Negative) Urine Bilirubin Negative (Negative) Urine Urobilinogen <2.0 (<2.0) mg/dL Ur Leukocyte Esterase Negative (Negative) Urine HCG, Qual (Not Detectd) Influenza Type A (PCR) (Not Detectd) Influenza Type B (PCR) (Not Detectd) RSV (PCR) (Not Detectd) SARS-CoV-2 (PCR) (Not Detectd) 02/13/24 02/13/24 Range/Units 20:50 20:50 WBC (3.8-10.6) k/uL RBC (3.80-5.40) m/uL Hgb (11.4-16.0) gm/dL Hct (34.0-46.0) % MCV (80.0-100.0) fL MCH (25.0-35.0) pg MCHC (31.0-37.0) g/dL RDW (11.5-15.5) % Plt Count (150-450) k/uL MPV Neutrophils % % Lymphocytes % % Monocytes % % Eosinophils % % Basophils % % Neutrophils # (1.3-7.7) k/uL Lymphocytes # (1.0-4.8) k/uL Monocytes # (0-1.0) k/uL Eosinophils # (0-0.7) k/uL Basophils # (0-0.2) k/uL Sodium (137-145) mmol/L Potassium (3.5-5.1) mmol/L Chloride (98-107) mmol/L Carbon Dioxide (22-30) mmol/L Anion Gap mmol/L BUN (7-17) mg/dL Creatinine (0.52-1.04) mg/dL Est GFR (CKD-EPI)AfAm (>60 ml/min/1.73 sqM) Est GFR (CKD-EPI)NonAf (>60 ml/min/1.73 sqM) Glucose (74-99) mg/dL Calcium (8.4-10.2) mg/dL Total Bilirubin (0.2-1.3) mg/dL AST (14-36) U/L ALT (4-34) U/L Alkaline Phosphatase (38-126) U/L Total Protein (6.3-8.2) g/dL Albumin (3.5-5.0) g/dL Amylase (30-110) U/L Lipase (23-300) U/L Urine Color Urine Appearance (Clear) Urine pH (5.0-8.0) Ur Specific [place] (1.001-1.035) Urine Protein (Negative) Urine Glucose (UA) (Negative) Urine Ketones (Negative) Urine Blood (Negative) Urine Nitrite (Negative) Urine Bilirubin (Negative) Urine Urobilinogen (<2.0) mg/dL Ur Leukocyte Esterase (Negative) Urine HCG, Qual Not Detected (Not Detectd) Influenza Type A (PCR) Not Detected (Not Detectd) Influenza Type B (PCR) Not Detected (Not Detectd) RSV (PCR) Not Detected (Not Detectd) SARS-CoV-2 (PCR) Not Detected (Not Detectd) Disposition Clinical Impression: Nausea and vomiting Disposition: HOME SELF-CARE Condition: Stable Instructions (If sedation given, give patient instructions): Acute Nausea and Vomiting (ED), Acute Diarrhea (ED) Additional Instructions: Please follow up with your primary care provider. Return to the emergency department for new or worsening symptoms. Prescriptions: Ondansetron Odt [Zofran Odt] 4 mg PO Q8HR PRN #10 tab PRN Reason: Nausea Is patient prescribed a controlled substance at d/c from ED?: No Referrals: Jessica Chaudhary DO [Primary Care Provider] - 1-2 days
[2024-02-13] MEDS: ONDANSETRON 4 MG/2 ML VIAL IVP STA ×2 (20:56→23:21)
[2024-02-13] MEDS: SODIUM CHLORIDE 0.9% 2,000 ML IV STA (21:00)
[2024-02-13 21:14] LABS: Basophils # (A) 0.1 k/uL (0-0.2); Basophils % (A) 1 %; Eosinophils # (A) 0.2 k/uL (0-0.7); Eosinophils % (A) 1 %; HCT 49.5 % (34.0-46.0); HGB 16.1 gm/dL (11.4-16.0); Lymphocytes # (A) 0.4 k/uL (1.0-4.8); Lymphocytes % (A) 2 %; MCH 29.1 pg (25.0-35.0); MCHC 32.5 g/dL (31.0-37.0); MCV 89.5 fL (80.0-100.0); Mean Platelet Volume 7.3; Monocytes # (A) 0.5 k/uL (0-1.0); Monocytes % (A) 3 %; Neutrophils % (A) 93 %; Platelet Count 344 k/uL (150-450); RBC 5.53 m/uL (3.80-5.40); RDW 14.2 % (11.5-15.5); WBC 17.3 k/uL (3.8-10.6)
[2024-02-13 21:24] LABS: ALT 31 U/L (4-34); AST 26 U/L (14-36); African American GFR (CKD) >90 (>60 ml/min/1.73 sqM); Albumin 4.9 g/dL (3.5-5.0); Alkaline Phosphatase 105 U/L (38-126); Amylase 54 U/L (30-110); Anion Gap 10 mmol/L; Blood Urea Nitrogen 17 mg/dL (7-17); Calcium 9.6 mg/dL (8.4-10.2); Carbon Dioxide 27 mmol/L (22-30); Chloride 103 mmol/L (98-107); Glucose 141 mg/dL (74-99); Lipase 47 U/L (23-300); Non-African American GFR(CKD) >90 (>60 ml/min/1.73 sqM); Potassium 4.5 mmol/L (3.5-5.1); Sodium 140 mmol/L (137-145); Total Bilirubin 1.3 mg/dL (0.2-1.3)
[2024-02-13 21:56] LABS: Appearance,Urine Clear (Clear); Bilirubin,Urine Negative (Negative); Blood,Urine Negative (Negative); Color,Urine Yellow; Glucose,Urine (UA) Negative (Negative); Ketones,Urine Negative (Negative); Leukocyte Esterase,Urine Negative (Negative); Nitrite,Urine Negative (Negative); Protein,Urine Trace (Negative); Specific Gravity,Urine 1.028 (1.001-1.035); Urobilinogen,Urine <2.0 mg/dL (<2.0)
[2024-02-13] MEDS: ONDANSETRON 4 MG ODT STARTER PACK 2 TAB BTL PO STA (22:28)
[2024-02-13] MEDS: KETOROLAC 15 MG/ML 1 ML VIAL IVP STA (22:28)
[2024-02-13] MEDS: SODIUM CHLORIDE 0.9% 1,000 ML IV SCH (22:30)
[2024-02-13 22:35] VITALS: BP 100/60; PULSE 112; RESP 20
== END 2024-02-13 23:29 | disposition home or self-care (01) ==
LOC: EC 19:23
DX: K52.9 Noninfective gastroenteritis and colitis, unspecified (principal)
CPT/HCPCS: 36415; 93005; 80053; 82150; 83690; 85025; 81003; 81025; 87636; 99284; 96374; 96375; 96376; 96361 ×2; J2405; J1885; S0119

== ENCOUNTER 2024-08-14 01:47 | Emergency (ER) | payer OTHER ==
[2024-08-14 01:52] VITALS: TEMP 98.3
--- NOTE | 2024-08-14 02:13 | ED ---
Abdominal Pain HPI - General Chief Complaint: Abdominal Pain Stated Complaint: Abd pain Time Seen by Provider: 08/14/24 01:54 Source: patient Mode of arrival: ambulatory Limitations: no limitations - History of Present Illness Initial Comments: 29-year-old female presenting with chief complaint of abdominal pain. Patient has had generalized abdominal pain for the last day. She was seen at urgent care and was diagnosed with constipation. She has taken MiraLAX and fiber at home today and has not had a bowel movement yet. Her last bowel movement was . Patient is now starting to have nausea and vomiting. She also states that she intermittently breaks out in a sweat in relation to her pain. No dysuria or hematuria. Denies . Denies fever or chills. No URI-like symptoms. No chest pain or difficulty breathing. - Related Data Home Medications Medication Instructions Recorded Confirmed No Known Home Medications 08/14/24 08/14/24 Allergies Allergy/AdvReac Type Severity Reaction Status Date / Time No Known Allergies Allergy Verified 08/14/24 14:19 Review of Systems ROS Statement: Those systems with pertinent positive or pertinent negative responses have been documented in the HPI. ROS Other: All systems not noted in ROS Statement are negative. Past Medical History Past Medical History: No Reported History History of Any Multi-Drug Resistant Organisms: None Reported Past Surgical History: Orthopedic Surgery Additional Past Surgical History / Comment(s): Left ACL 2011 Past Anesthesia/Blood Transfusion Reactions: No Reported Reaction Past Psychological History: Anxiety Smoking Status: Never smoker Past Alcohol Use History: Rare Past Drug Use History: None Reported - Past Family History Mother Family Medical History: Diabetes Mellitus General Exam Limitations: no limitations General appearance: alert, in no apparent distress Head exam: Present: atraumatic, normocephalic, normal inspection Eye exam: Present: normal appearance, EOMI Neck exam: Present: normal inspection. Absent: meningismus Respiratory exam: Present: normal lung sounds bilaterally. Absent: respiratory distress, wheezes, rales, rhonchi, stridor Cardiovascular Exam: Present: regular rate, normal rhythm, normal heart sounds. Absent: systolic murmur, diastolic murmur, rubs, gallop, clicks GI/Abdominal exam: Present: soft, tenderness (Generalized). Absent: distended, guarding, rebound, rigid Neurological exam: Present: alert, oriented X3 Psychiatric exam: Present: normal affect, normal mood Skin exam: Present: warm, dry Course Vital Signs 08/14/24 08/14/24 01:49 03:49 Temperature 98.3 F Pulse Rate 112 H 91 Respiratory 16 18 Rate Blood Pressure 144/97 124/85 O2 Sat by Pulse 99 97 Oximetry Medical Decision Making - Medical Decision Making 29-year-old female presenting with chief complaint of abdominal pain. This pain is diffuse. She started having vomiting this evening. She was diagnosed with constipation earlier today. History and physical examination are conducted. P atient has diffuse discomfort with no localized tenderness or guarding. White count is elevated 19.8, this may be reactive due to the vomiting, patient has also had elevated white count in the past. Amylase and lipase are WNL. Urine shows signs of contamination, 11 squamous cells. Negative hCG. She is negative for influenza, RSV, COVID. KUB x-ray does show some degree of constipation by my interpretation. I discussed these results with the patient. I explained to her that we cannot completely rule out appendicitis at this time without CT. I discussed the pros and cons and shared decision-making was utilized, patient declines CT at this time and will return if symptoms worsen. I discussed options for constipation including enema, suppository, or laxative. Patient would prefer a laxative, she is given magnesium citrate to take at home and instructions on how to do so. Follow-up with PCP. Report back to ER with any new or worsening symptoms. Discussed return parameters and answered all questions. Patient conveyed verbal understanding and agreed to the plan. I discussed this case in detail with my attending Dr. Garcia Was pt. sent in by a medical professional or institution (, PA, INTELLIGENCE SUPPORT OFFICER, urgent care, hospital, or longterm...) When possible be specific @ -No Did you speak to anyone other than the patient for history (EMS, parent, family, police, friend...)? What history was obtained from this source @ -No Did you review nursing and triage notes (agree or disagree)? Why? @ -I reviewed and agree with nursing and triage notes Were old charts reviewed (outside hosp., previous admission, EMS record, old EKG, old radiological studies, urgent care reports/EKG's, longterm records)? Report findings @ -No old charts were reviewed Differential Diagnosis (chest pain, altered mental status, abdominal pain women, abdominal pain men, vaginal bleeding, weakness, fever, dyspnea, syncope, headache, dizziness, GI bleed, back pain, seizure, CVA, palpatations, mental health, musculoskeletal)? @ -MDM Differential Abdominal Pain Women: Appendicitis, Cholecystitis, diverticulosis, ischemic bowel, pancreatitis, hepatitis, UTI, gastroenteritis, AAA, incarcerated hernia, bowel obstruction, constipation, inflammatory bowel, hepatitis, peptic ulcer disease, splenic infarction, perforated viscus, vulvitis, ovarian torsion, PID, kidney stone, placenta abruption... This is not meant to be an all-inclusive list EKG interpreted by me (3pts min.). @ -As above X-rays interpreted by me (1pt min.). @ -By my interpretation KUB x-ray does show some degree of constipation CT interpreted by me (1pt min.). @ -None done U/S interpreted by me (1pt. min.). @ -None done What testing was considered but not performed or refused? (CT, X-rays, U/S, labs)? Why? @ -CT offered, shared decision making is utilized and patient would prefer to not have CT today What meds were considered but not given or refused? Why? @ -None Did you discuss the management of the patient with other professionals (professionals i.e. , PA, INTELLIGENCE SUPPORT OFFICER, lab, RT, psych nurse, social and political studies professor, patent lawyer, teacher, disciplinary hearing officer, case management director)? Give summary @ -No Was smoking cessation discussed for >3mins.? @ -No Was critical care preformed (if so, how long)? @ -No Were there social determinants of health that impacted care today? How? (Homelessness, low income, unemployed, alcoholism, drug addiction, transportation, low edu. Level, literacy, decrease access to med. care, long-term, rehab)? @ -No Was there de-escalation of care discussed even if they declined (Discuss DNR or withdrawal of care, Hospice)? DNR status @ -No What co-morbidities impacted this encounter? (DM, HTN, Smoking, COPD, CAD, Cancer, CVA, ARF, Chemo, Hep., AIDS, mental health diagnosis, sleep apnea, morbid obesity)? @ -None Was patient admitted / discharged? Hospital course, mention meds given and route, prescriptions, significant lab abnormalities, going to OR and other pertinent info. @ -Discharge, see above for details Undiagnosed new problem with uncertain prognosis? @ -No Drug Therapy requiring intensive monitoring for toxicity (Heparin, Nitro, Insulin, Cardizem)? @ -No Were any procedures done? @ -No Diagnosis/symptom? @ -Constipation, abdominal pain Acute, or Chronic, or Acute on Chronic? @ -Acute Uncomplicated (without systemic symptoms) or Complicated (systemic symptoms)? @ -Uncomplicated Side effects of treatment? @ -No Exacerbation, Progression, or Severe Exacerbation? @ -No Poses a threat to life or bodily function? How? (Chest pain, [place], [place], pneumonia, PE, COPD, DKA, ARF, appy, cholecystitis, CVA, Diverticulitis, Homicidal, Suicidal, threat to staff... and all critical care pts) @ -Low likelihood - Lab Data Result diagrams: 08/14/24 02:02 08/14/24 02:02 Lab Results 08/14/24 08/14/24 08/14/24 Range/Units 02:02 02:02 02:02 WBC 19.8 H (3.8-10.6) k/uL RBC 5.26 (3.80-5.40) m/uL Hgb 14.8 (11.4-16.0) gm/dL Hct 44.3 (34.0-46.0) % MCV 84.2 (80.0-100.0) fL MCH 28.1 (25.0-35.0) pg MCHC 33.4 (31.0-37.0) g/dL RDW 12.6 (11.5-15.5) % Plt Count 327 (150-450) k/uL MPV 6.6 Neutrophils % 82 % Lymphocytes % 12 % Monocytes % 4 % Eosinophils % 1 % Basophils % 0 % Neutrophils # 16.4 H (1.3-7.7) k/uL Lymphocytes # 2.3 (1.0-4.8) k/uL Monocytes # 0.8 (0-1.0) k/uL Eosinophils # 0.1 (0-0.7) k/uL Basophils # 0.1 (0-0.2) k/uL Sodium 137 (137-145) mmol/L Potassium 4.2 (3.5-5.1) mmol/L Chloride 101 (98-107) mmol/L Carbon Dioxide 29 (22-30) mmol/L Anion Gap 7 mmol/L BUN 10 (7-17) mg/dL Creatinine 0.72 (0.52-1.04) mg/dL Est GFR (CKD-EPI)AfAm >90 (>60 ml/min/1.73 sqM) Est GFR (CKD-EPI)NonAf >90 (>60 ml/min/1.73 sqM) Glucose 167 H (74-99) mg/dL Plasma Lactic Acid [place] 1.1 (0.7-2.0) mmol/L Calcium 9.6 (8.4-10.2) mg/dL Total Bilirubin 0.9 (0.2-1.3) mg/dL AST 16 (14-36) U/L ALT 23 (4-34) U/L Alkaline Phosphatase 122 (38-126) U/L Total Protein 7.5 (6.3-8.2) g/dL Albumin 4.5 (3.5-5.0) g/dL Amylase 38 (30-110) U/L Lipase 52 (23-300) U/L Urine Color Urine Appearance (Clear) Urine pH (5.0-8.0) Ur Specific [place] (1.001-1.035) Urine Protein (Negative) Urine Glucose (UA) (Negative) Urine Ketones (Negative) Urine Blood (Negative) Urine Nitrite (Negative) Urine Bilirubin (Negative) Urine Urobilinogen (<2.0) mg/dL Ur Leukocyte Esterase (Negative) Urine RBC (0-5) /hpf Urine WBC (0-5) /hpf Ur Squamous Epith Cells (0-4) /hpf Urine Bacteria (None) /hpf Urine Mucus (None) /hpf Urine Yeast (Budding) (None) /hpf Urine HCG, Qual (Not Detectd) Influenza Type A (PCR) (Not Detectd) Influenza Type B (PCR) (Not Detectd) RSV (PCR) (Not Detectd) SARS-CoV-2 (PCR) (Not Detectd) 08/14/24 08/14/24 08/14/24 Range/Units 02:07 02:07 02:11 WBC (3.8-10.6) k/uL RBC (3.80-5.40) m/uL Hgb (11.4-16.0) gm/dL Hct (34.0-46.0) % MCV (80.0-100.0) fL MCH (25.0-35.0) pg MCHC (31.0-37.0) g/dL RDW (11.5-15.5) % Plt Count (150-450) k/uL MPV Neutrophils % % Lymphocytes % % Monocytes % % Eosinophils % % Basophils % % Neutrophils # (1.3-7.7) k/uL Lymphocytes # (1.0-4.8) k/uL Monocytes # (0-1.0) k/uL Eosinophils # (0-0.7) k/uL Basophils # (0-0.2) k/uL Sodium (137-145) mmol/L Potassium (3.5-5.1) mmol/L Chloride (98-107) mmol/L Carbon Dioxide (22-30) mmol/L Anion Gap mmol/L BUN (7-17) mg/dL Creatinine (0.52-1.04) mg/dL Est GFR (CKD-EPI)AfAm (>60 ml/min/1.73 sqM) Est GFR (CKD-EPI)NonAf (>60 ml/min/1.73 sqM) Glucose (74-99) mg/dL Plasma Lactic Acid [place] (0.7-2.0) mmol/L Calcium (8.4-10.2) mg/dL Total Bilirubin (0.2-1.3) mg/dL AST (14-36) U/L ALT (4-34) U/L Alkaline Phosphatase (38-126) U/L Total Protein (6.3-8.2) g/dL Albumin (3.5-5.0) g/dL Amylase (30-110) U/L Lipase (23-300) U/L Urine Color Yellow Urine Appearance Cloudy H (Clear) Urine pH 6.5 (5.0-8.0) Ur Specific [place] 1.030 (1.001-1.035) Urine Protein 1+ H (Negative) Urine Glucose (UA) Trace H (Negative) Urine Ketones Negative (Negative) Urine Blood Negative (Negative) Urine Nitrite Negative (Negative) Urine Bilirubin Negative (Negative) Urine Urobilinogen <2.0 (<2.0) mg/dL Ur Leukocyte Esterase Trace H (Negative) Urine RBC <1 (0-5) /hpf Urine WBC 5 (0-5) /hpf Ur Squamous Epith Cells 11 H (0-4) /hpf Urine Bacteria Rare H (None) /hpf Urine Mucus Moderate H (None) /hpf Urine Yeast (Budding) Rare H (None) /hpf Urine HCG, Qual Not Detected (Not Detectd) Influenza Type A (PCR) Not Detected (Not Detectd) Influenza Type B (PCR) Not Detected (Not Detectd) RSV (PCR) Not Detected (Not Detectd) SARS-CoV-2 (PCR) Not Detected (Not Detectd) Disposition Clinical Impression: Constipation, Abdominal pain Disposition: HOME SELF-CARE Condition: Good Instructions (If sedation given, give patient instructions): Constipation (ED), Abdominal Pain (ED) Additional Instructions: Follow-up with PCP. Report back to ER with any new or worsening symptoms, including but not limited to fever, worsening pain, continued vomiting. You should have your labs redrawn to ensure that your numbers have gone back to normal Is patient prescribed a controlled substance at d/c from ED?: No Referrals: Jessica Chaudhary DO [Primary Care Provider] - 1-2 days Time of Disposition: 03:26
[2024-08-14] MEDS: ONDANSETRON 4 MG/2 ML VIAL IVP STA (02:16)
[2024-08-14] MEDS: KETOROLAC 15 MG/ML 1 ML VIAL IVP STA (02:18)
[2024-08-14 02:31] LABS: Basophils # (A) 0.1 k/uL (0-0.2); Basophils % (A) 0 %; Eosinophils # (A) 0.1 k/uL (0-0.7); Eosinophils % (A) 1 %; HCT 44.3 % (34.0-46.0); HGB 14.8 gm/dL (11.4-16.0); Lymphocytes # (A) 2.3 k/uL (1.0-4.8); Lymphocytes % (A) 12 %; MCH 28.1 pg (25.0-35.0); MCHC 33.4 g/dL (31.0-37.0); MCV 84.2 fL (80.0-100.0); Mean Platelet Volume 6.6; Monocytes # (A) 0.8 k/uL (0-1.0); Monocytes % (A) 4 %; Neutrophils # (A) 16.4 k/uL (1.3-7.7); Neutrophils % (A) 82 %; Platelet Count 327 k/uL (150-450); RBC 5.26 m/uL (3.80-5.40); RDW 12.6 % (11.5-15.5); WBC 19.8 k/uL (3.8-10.6)
[2024-08-14 02:49] LABS: Appearance,Urine Cloudy (Clear); Bacteria,Urine Rare /hpf; Bilirubin,Urine Negative (Negative); Blood,Urine Negative (Negative); Budding Yeast,Urine Rare /hpf; Color,Urine Yellow; Glucose,Urine (UA) Trace (Negative); Ketones,Urine Negative (Negative); Leukocyte Esterase,Urine Trace (Negative); Mucus,Urine Moderate /hpf; Nitrite,Urine Negative (Negative); PH, Urine 6.5 (5.0-8.0); Protein,Urine 1+ (Negative); RBC,Urine <1 /hpf (0-5); Squamous Epithelial Cell,Urine 11 /hpf (0-4); Urobilinogen,Urine <2.0 mg/dL (<2.0); WBC,Urine 5 /hpf (0-5)
[2024-08-14 03:01] LABS: ALT 23 U/L (4-34); AST 16 U/L (14-36); African American GFR (CKD) >90 (>60 ml/min/1.73 sqM); Albumin 4.5 g/dL (3.5-5.0); Alkaline Phosphatase 122 U/L (38-126); Amylase 38 U/L (30-110); Anion Gap 7 mmol/L; Blood Urea Nitrogen 10 mg/dL (7-17); Calcium 9.6 mg/dL (8.4-10.2); Carbon Dioxide 29 mmol/L (22-30); Chloride 101 mmol/L (98-107); Glucose 167 mg/dL (74-99); Lipase 52 U/L (23-300); Non-African American GFR(CKD) >90 (>60 ml/min/1.73 sqM); Potassium 4.2 mmol/L (3.5-5.1); Sodium 137 mmol/L (137-145); Total Bilirubin 0.9 mg/dL (0.2-1.3); Total Protein 7.5 g/dL (6.3-8.2)
[2024-08-14] MEDS: MAGNESIUM CITRATE 296 ML BOTTLE PO ONE (03:48)
[2024-08-14 03:51] VITALS: BP 124/85; PULSE 91; RESP 18
--- NOTE | 2024-08-14 06:50 | XR ---
EXAM: XR Abdomen, 2 Views CLINICAL HISTORY: ITS.REASON XR Reason: abdominal pain TECHNIQUE: Frontal view of the abdomen/pelvis with upright view of the abdomen. 2 images of upright view. COMPARISON: No relevant prior studies available. FINDINGS: Intraperitoneal space: No free air. Gastrointestinal tract: filled distended small bowel loops. Bones/joints: Unremarkable. No acute fracture. Other findings: Mild to moderate retained stool. No abnormal calcification. IMPRESSION: 1. Nonspecific bowel gas pattern with moderate retained stool. 2. No free air. 3. No radiopaque renal calculus. 4. Further management and imaging based on clinical findings
== END 2024-08-14 03:49 | disposition home or self-care (01) ==
LOC: EC 01:47
DX: K59.00 Constipation, unspecified (principal)
CPT/HCPCS: 36415; 80053; 82150; 83605; 83690; 85025; 81001; 81025; 87636; 74018; 99284; 96374; 96375; J2405; J1885

== ENCOUNTER 2024-08-14 08:26 | Observation (INO) | payer OTHER ==
--- NOTE | 2024-08-14 08:58 | ED ---
General Adult HPI - General Chief complaint: Abdominal Pain Stated complaint: constipation Time Seen by Provider: 08/14/24 08:40 Source: patient, family, RN notes reviewed, old records reviewed Mode of arrival: ambulatory Limitations: no limitations - History of Present Illness Initial comments: This is a 29-year-old female who presents to the emergency department for the second time today. Patient states that on she started having abdominal pain in the upper area and a little bit in the lower abdominal area. Patient states she had a bowel movement that day but the pain continued. Patient states on Friday she started vomiting and early this morning she came to the emergency department. Patient states she was told she was constipated she went home and drank mag citrate and about an hour later she picked it all up and continues to have the abdominal pain. Patient denies any fever or chills. Patient states she has no back pain. Patient denies dysuria hematuria urinary frequency. - Related Data Home Medications Medication Instructions Recorded Confirmed Ferrous Sulfate [Slow Fe] 137 mg PO DAILY 10/27/23 10/27/23 Rqp-[id number] Acid 1 cap PO DAILY 10/27/23 10/27/23 [-U Capsule (formulary)] Previous Rx's Medication Instructions Recorded Amoxic-Pot Clav 875-125Mg 1 each PO Q12HR 7 Days #14 tab 10/30/23 [Augmentin 875-125] Hydrocortisone Suppository 25 mg RECTAL BID #14 suppositor 10/30/23 [Anusol-Hc] Ibuprofen [Motrin] 400 mg PO Q6HR PRN tab 10/30/23 Labetalol [Trandate] 200 mg PO Q8H #90 tab 10/30/23 Labetalol [Trandate] 200 mg PO TID #30 tab 10/30/23 NIFEdipine XL [Procardia XL] 60 mg PO DAILY #30 tab 10/30/23 guaiFENesin SYRUP 100MG/5ML 200 mg PO Q6HR PRN ml 10/30/23 [Robitussin] Ondansetron Odt [Zofran Odt] 4 mg PO Q8HR PRN #10 tab 02/13/24 Allergies Allergy/AdvReac Type Severity Reaction Status Date / Time No Known Allergies Allergy Verified 08/14/24 01:52 Review of Systems ROS Statement: Those systems with pertinent positive or pertinent negative responses have been documented in the HPI. ROS Other: All systems not noted in ROS Statement are negative. Past Medical History Past Medical History: No Reported History History of Any Multi-Drug Resistant Organisms: None Reported Past Surgical History: Orthopedic Surgery Additional Past Surgical History / Comment(s): Left ACL 2011 Past Anesthesia/Blood Transfusion Reactions: No Reported Reaction Past Psychological History: Anxiety Smoking Status: Never smoker Past Alcohol Use History: Rare Past Drug Use History: None Reported - Past Family History Mother Family Medical History: Diabetes Mellitus General Exam - General Exam Comments Initial Comments: GENERAL: Patient is well-developed and well-nourished. Patient is nontoxic and well- hydrated and is in mild distress. ENT: Neck is soft and supple. No significant lymphadenopathy is noted. Oropharynx is clear. Moist mucous membranes. Neck has full range of motion without eliciting any pain. EYES: The sclera were anicteric and conjunctiva were pink and moist. Extraocular movements were intact and pupils were equal round and reactive to light. Eyelids were unremarkable. PULMONARY: Patient has slight upper right quadrant abdominal pain CARDIOVASCULAR: There is a regular rate and rhythm without any murmurs gallops or rubs. ABDOMEN: Soft and nontender with normal bowel sounds. No palpable organomegaly was noted. There is no palpable pulsatile mass. SKIN: Skin is clear with no lesions or rashes and otherwise unremarkable. NEUROLOGIC: Patient is alert and oriented x3. Cranial nerves II through XII are grossly intact. Motor and sensory are also intact. Normal speech, volume and content. Symmetrical smile. MUSCULOSKELETAL: Normal extremities with adequate strength and full range of motion. LYMPHATICS: No significant lymphadenopathy is noted PSYCHIATRIC: Normal psychiatric evaluation. Limitations: no limitations Course Vital Signs 08/14/24 08:36 Temperature 98.5 F Pulse Rate 99 Respiratory 18 Rate Blood Pressure 150/90 O2 Sat by Pulse 97 Oximetry Medical Decision Making - Medical Decision Making Was pt. sent in by a medical professional or institution (, PA, MINE EXPERT, urgent care, hospital, or senior living...) When possible be specific @ -No Did you speak to anyone other than the patient for history (EMS, parent, family, police, friend...)? What history was obtained from this source @ -No Did you review nursing and triage notes (agree or disagree)? Why? @ -I reviewed and agree with nursing and triage notes Were old charts reviewed (outside hosp., previous admission, EMS record, old EKG, old radiological studies, urgent care reports/EKG's, senior living records)? Report findings @ -No old charts were reviewed Differential Diagnosis? @ -Differential Abdominal Pain Women: Appendicitis, Cholecystitis, diverticulosis, ischemic bowel, pancreatitis, hepatitis, UTI, gastroenteritis, AAA, incarcerated hernia, bowel obstruction, constipation, inflammatory bowel, hepatitis, peptic ulcer disease, splenic infarction, perforated viscus, vulvitis, ovarian torsion, PID, kidney stone, placenta abruption, this is not meant to be an all-inclusive list EKG interpreted by me (3pts min.). @ -As above X-rays interpreted by me (1pt min.). @ -None done CT interpreted by me (1pt min.). @ -CT scan shows acute appendicitis U/S interpreted by me (1pt. min.). @ -Ultrasound shows a normal gallbladder no thickened gallbladder wall and no pericholecystic fluid What testing was considered but not performed or refused? (CT, X-rays, U/S, labs)? Why? @ -None What meds were considered but not given or refused? Why? @ -None Did you discuss the management of the patient with other professionals (professionals i.e. , PA, MINE EXPERT, lab, RT, psych nurse, psychotherapist social worker, plate mill mill hand, teacher, artillery officer, caseworker)? Give summary @ -I spoke with Dr. Coburn he agreed to admit the patient admit the patient wrote admitting orders and started the patient on antibiotics Was smoking cessation discussed for >3mins.? @ -No Was critical care preformed (if so, how long)? @ -No Were there social determinants of health that impacted care today? How? (Homelessness, low income, unemployed, alcoholism, drug addiction, transportation, low edu. Level, literacy, decrease access to med. care, assisted, rehab)? @ -No Was there de-escalation of care discussed even if they declined (Discuss DNR or withdrawal of care, Hospice)? DNR status @ -No What co-morbidities impacted this encounter? (DM, HTN, Smoking, COPD, CAD, Cancer, CVA, ARF, Chemo, Hep., AIDS, mental health diagnosis, sleep apnea, morbid obesity)? @ -None Was patient admitted / discharged? Hospital course, mention meds given and route, prescriptions, significant lab abnormalities, going to OR and other pertinent info. @ -Patient received fluid Toradol and antibiotics for the acute appendicitis Dr. Drew will admit the patient and take the patient to surgery Undiagnosed new problem with uncertain prognosis? @ -No Drug Therapy requiring intensive monitoring for toxicity (Heparin, Nitro, Insulin, Cardizem)? @ -No Were any procedures done? @ -No Diagnosis/symptom? @ -Acute appendicitis Acute, or Chronic, or Acute on Chronic? @ -Acute Uncomplicated (without systemic symptoms) or Complicated (systemic symptoms)? @ -Comp Side effects of treatment? @ -No Exacerbation, Progression, or Severe Exacerbation? @ -No Poses a threat to life or bodily function? How? (Chest pain, [place], [place], pneumonia, PE, COPD, DKA, ARF, appy, cholecystitis, CVA, Diverticulitis, Homicidal, Suicidal, threat to staff... and all critical care pts) @ -Yes this can lead to sepsis and endorgan dysfunction - Lab Data Result diagrams: 08/14/24 08:55 08/14/24 08:55 Lab Results 08/14/24 08/14/24 Range/Units 08:55 08:55 WBC 21.4 H (3.8-10.6) k/uL RBC 5.29 (3.80-5.40) m/uL Hgb 15.5 (11.4-16.0) gm/dL Hct 44.1 (34.0-46.0) % MCV 83.4 (80.0-100.0) fL MCH 29.4 (25.0-35.0) pg MCHC 35.2 (31.0-37.0) g/dL RDW 12.9 (11.5-15.5) % Plt Count 336 (150-450) k/uL MPV 6.8 Neutrophils % 90 % Lymphocytes % 5 % Monocytes % 3 % Eosinophils % 1 % Basophils % 0 % Neutrophils # 19.1 H (1.3-7.7) k/uL Lymphocytes # 1.2 (1.0-4.8) k/uL Monocytes # 0.7 (0-1.0) k/uL Eosinophils # 0.3 (0-0.7) k/uL Basophils # 0.1 (0-0.2) k/uL Sodium 138 (137-145) mmol/L Potassium 4.3 (3.5-5.1) mmol/L Chloride 100 (98-107) mmol/L Carbon Dioxide 26 (22-30) mmol/L Anion Gap 12 mmol/L BUN 10 (7-17) mg/dL Creatinine 0.74 (0.52-1.04) mg/dL Est GFR (CKD-EPI)AfAm >90 (>60 ml/min/1.73 sqM) Est GFR (CKD-EPI)NonAf >90 (>60 ml/min/1.73 sqM) Glucose 144 H (74-99) mg/dL Calcium 9.7 (8.4-10.2) mg/dL Total Bilirubin 1.0 (0.2-1.3) mg/dL AST 18 (14-36) U/L ALT 23 (4-34) U/L Alkaline Phosphatase 130 H (38-126) U/L Total Protein 8.0 (6.3-8.2) g/dL Albumin 4.7 (3.5-5.0) g/dL Disposition Clinical Impression: Acute appendicitis Disposition: ADMITTED IP TO THIS HOSP Referrals: Jessica Chaudhary DO [Primary Care Provider] - 1-2 days Time of Disposition: 11:09
[2024-08-14 09:16] LABS: Basophils # (A) 0.1 k/uL (0-0.2); Basophils % (A) 0 %; Eosinophils # (A) 0.3 k/uL (0-0.7); Eosinophils % (A) 1 %; HCT 44.1 % (34.0-46.0); HGB 15.5 gm/dL (11.4-16.0); Lymphocytes # (A) 1.2 k/uL (1.0-4.8); Lymphocytes % (A) 5 %; MCH 29.4 pg (25.0-35.0); MCHC 35.2 g/dL (31.0-37.0); MCV 83.4 fL (80.0-100.0); Mean Platelet Volume 6.8; Monocytes # (A) 0.7 k/uL (0-1.0); Monocytes % (A) 3 %; Neutrophils # (A) 19.1 k/uL (1.3-7.7); Neutrophils % (A) 90 %; Platelet Count 336 k/uL (150-450); RBC 5.29 m/uL (3.80-5.40); RDW 12.9 % (11.5-15.5); WBC 21.4 k/uL (3.8-10.6)
[2024-08-14 09:27] LABS: ALT 23 U/L (4-34); AST 18 U/L (14-36); African American GFR (CKD) >90 (>60 ml/min/1.73 sqM); Albumin 4.7 g/dL (3.5-5.0); Alkaline Phosphatase 130 U/L (38-126); Anion Gap 12 mmol/L; Blood Urea Nitrogen 10 mg/dL (7-17); Calcium 9.7 mg/dL (8.4-10.2); Carbon Dioxide 26 mmol/L (22-30); Chloride 100 mmol/L (98-107); Glucose 144 mg/dL (74-99); Non-African American GFR(CKD) >90 (>60 ml/min/1.73 sqM); Potassium 4.3 mmol/L (3.5-5.1); Sodium 138 mmol/L (137-145)
--- NOTE | 2024-08-14 09:32 | US ---
EXAMINATION TYPE: US gallbladder DATE OF EXAM: 08/14/2024 COMPARISON: NONE CLINICAL INDICATION: Female, 29 years old with history of Right upper quadrant abdominal pain; RUQ pa in, pt is constipated. TECHNIQUE: Grayscale and color Doppler imaging of the right upper quadrant was performed. FINDINGS: EXAM MEASUREMENTS: Liver Length: 18.7 cm Gallbladder Wall: 0.2 cm CBD: not visualized Right Kidney: 11.2 x 5.8 x 4.3 cm DUST COLLECTOR TREATER NOTES: Pancreas: parts seen appear wnl Liver: heterogeneous and enlarged Gallbladder: wnl Evidence for sonographic Abernathy's sign: no CBD: not seen due to body habitus and bowel gas Right Kidney: wnl IMPRESSION: 1 hepatomegaly [facility], , 08/14/2024 9:30 AM
[2024-08-14] MEDS: KETOROLAC 15 MG/ML 1 ML VIAL IVP STA (09:40)
--- NOTE | 2024-08-14 10:37 | CT ---
EXAMINATION TYPE: CT abdomen pelvis w con DATE OF EXAM: 08/14/2024 10:25 AM COMPARISON: None. CLINICAL INDICATION: Female, 29 years old with history of Abdominal pain, ABD PAIN TECHNIQUE: Axial images were obtained from above the diaphragm to the pubic rami in the axial plane a t 5 mm thick sections. Reconstructed images are reviewed on the computer in the coronal plane. CONTRAST: 100 mL of Isovue 300. Study performed without Oral Contrast DLP: 1383.1 mGycm, Automated exposure control for dose reduction was used. FINDINGS: Limited CT sections are obtained the lung bases. The lung bases are clear. CT ABDOMEN: Liver: Normal Spleen: Normal Pancreas: Normal Adrenal glands: The adrenal glands are normal. Gallbladder: Normal Kidneys: No masses are evident. No hydronephrosis is present. No cysts are present. Delayed images were obtained through the kidneys, which remain unremarkable. Aorta: Normal Inferior vena cava: Normal. CT PELVIS: Loops of bowel within the abdomen and pelvis are normal. This study is without oral contrast limi ting bowel lesion. Appendix: There appears to be a appendicolith at the appendix origin. The appendix is dilated and has adjacent inflammatory change. Appendix diameter is 1.4 cm. Normal less than 0.7 cm. Urinary bladder: Decompressed limiting evaluation. Genitourinary structures: Uterus and ovaries are normal. Some minimal free fluid is within the pelvis Osseous structures: No suspicious lytic or sclerotic lesions. IMPRESSION: 1. Findings compatible with acute appendicitis. Report was called to emergency room Dr Raymond by Dr. Kenroy can by telephone at the time of interpretation. [facility], Workstation: [id number], 08/14/2024 10:35 AM
[2024-08-14] MEDS: cefTRIAXone IN SWFI 1,000 MG/10 ML SYRINGE IVP STA ×2 (11:20→11:21)
[2024-08-14] MEDS: SODIUM CHLORIDE 0.9% 1,000 ML IV ONE (11:29)
[2024-08-14] MEDS: metroNIDAZOLE-NS PMX 500 MG in SALINE 1 100ML.BAG IVPB STA (11:30)
[2024-08-14] MEDS ORDERED: ROCURONIUM 10 MG/ML (5 ML VIAL) IV ONE (11:55)
[2024-08-14] MEDS ORDERED: MIDAZOLAM 2 MG/2 ML VIAL ONE (11:55)
[2024-08-14] MEDS ORDERED: GLYCOPYRROLATE 0.2 MG/ML 2 ML VIAL ONE (11:55)
[2024-08-14] MEDS ORDERED: SUCCINYLCHOLINE CHLORIDE 200 MG/10 ML VIAL IV ONE (11:55)
[2024-08-14] MEDS ORDERED: NEOSTIGMINE 1 MG/ML 10 ML VIAL ONE (11:55)
[2024-08-14] MEDS ORDERED: PROPOFOL 10 MG/ML 20 ML VIAL IV ONE (11:55)
[2024-08-14] MEDS ORDERED: LIDOCAINE 1% INJ 10MG/ML (20 ML MDV) ONE (11:55)
[2024-08-14] MEDS ORDERED: fentaNYL (PF) 50 MCG/ML 2 ML AMP ONE (11:55)
[2024-08-14] MEDS: IV FLUID CONTINUATION 1,000 ML IV ONE (12:00)
[2024-08-14] MEDS: LIDOCAINE 2%-EPI 1:100,000 20 ML VIAL SQ ONE ×2 (12:28→12:57)
[2024-08-14] MEDS: ONDANSETRON 4 MG/2 ML VIAL IVP STA (13:23)
[2024-08-14] MEDS ORDERED: HYDROmorphone 0.5 MG/0.5 ML SYRINGE IVP PRN (14:28)
[2024-08-14] MEDS ORDERED: ONDANSETRON 4 MG/2 ML VIAL IM PRN (14:33)
[2024-08-14] MEDS ORDERED: ONDANSETRON 4 MG/2 ML VIAL IVP PRN (14:40)
--- NOTE | 2024-08-14 14:49 | P.GSHP ---
History of Present Illness H&P Date: 08/14/24 Patient is a 29 yo female presenting with 3 days of abdominal pain with associated nausea. Patient admits to right upper/lower quadrant abdominal pain with nausea. Currently denies fevers, chills, shortness of breath or chest pain. Of note, she is 10 months post . - Constitutional Constitutional: Reports as per HPI Past Medical History Past Medical History: No Reported History History of Any Multi-Drug Resistant Organisms: None Reported Past Surgical History: Orthopedic Surgery Additional Past Surgical History / Comment(s): Left ACL 2011 Past Anesthesia/Blood Transfusion Reactions: No Reported Reaction Past Psychological History: Anxiety Smoking Status: Never smoker Past Alcohol Use History: Rare Past Drug Use History: None Reported - Past Family History Mother Family Medical History: Diabetes Mellitus Medications and Allergies Home Medications Medication Instructions Recorded Confirmed Type No Known Home Medications 08/14/24 08/14/24 History Allergies Allergy/AdvReac Type Severity Reaction Status Date / Time No Known Allergies Allergy Verified 08/14/24 14:19 Surgical - Exam Osteopathic Statement: *. No significant issues noted on an osteopathic structural exam other than those noted in the History and Physical/Consult. Vital Signs Temp Pulse Resp BP Pulse Ox 98.5 F 99 18 150/90 97 08/14/24 08:36 08/14/24 08:36 08/14/24 08:36 08/14/24 08:36 08/14/24 08:36 - General gen: nad cv: rrr pul: non labored breathing abd: soft, non distended, tender to palpation in right lower quadrant, no guarding or rebound tenderness Results - Labs 08/14/24 08:55 08/14/24 08:55 Abnormal Lab Results - Last 24 Hours (Table) 08/14/24 08/14/24 Range/Units 08:55 08:55 WBC 21.4 H (3.8-10.6) k/uL Neutrophils # 19.1 H (1.3-7.7) k/uL Glucose 144 H (74-99) mg/dL Alkaline Phosphatase 130 H (38-126) U/L Diabetes panel 08/14/24 Range/Units 08:55 Sodium 138 (137-145) mmol/L Potassium 4.3 (3.5-5.1) mmol/L Chloride 100 (98-107) mmol/L Carbon Dioxide 26 (22-30) mmol/L BUN 10 (7-17) mg/dL Creatinine 0.74 (0.52-1.04) mg/dL Glucose 144 H (74-99) mg/dL Calcium 9.7 (8.4-10.2) mg/dL AST 18 (14-36) U/L ALT 23 (4-34) U/L Alkaline Phosphatase 130 H (38-126) U/L Total Protein 8.0 (6.3-8.2) g/dL Albumin 4.7 (3.5-5.0) g/dL Calcium panel 08/14/24 Range/Units 08:55 Calcium 9.7 (8.4-10.2) mg/dL Albumin 4.7 (3.5-5.0) g/dL Pituitary panel 08/14/24 Range/Units 08:55 Sodium 138 (137-145) mmol/L Potassium 4.3 (3.5-5.1) mmol/L Chloride 100 (98-107) mmol/L Carbon Dioxide 26 (22-30) mmol/L BUN 10 (7-17) mg/dL Creatinine 0.74 (0.52-1.04) mg/dL Glucose 144 H (74-99) mg/dL Calcium 9.7 (8.4-10.2) mg/dL Adrenal panel 08/14/24 Range/Units 08:55 Sodium 138 (137-145) mmol/L Potassium 4.3 (3.5-5.1) mmol/L Chloride 100 (98-107) mmol/L Carbon Dioxide 26 (22-30) mmol/L BUN 10 (7-17) mg/dL Creatinine 0.74 (0.52-1.04) mg/dL Glucose 144 H (74-99) mg/dL Calcium 9.7 (8.4-10.2) mg/dL Total Bilirubin 1.0 (0.2-1.3) mg/dL AST 18 (14-36) U/L ALT 23 (4-34) U/L Alkaline Phosphatase 130 H (38-126) U/L Total Protein 8.0 (6.3-8.2) g/dL Albumin 4.7 (3.5-5.0) g/dL Assessment and Plan Assessment: 29 yo female w/ acute appendicitis -continue abx -npo -OR Time with Patient: Greater than 30
--- NOTE | 2024-08-14 15:13 | P.OP ---
Date of Procedure: 08/14/24 Preoperative Diagnosis: appendicitis Postoperative Diagnosis: appendicitis Procedure(s) Performed: laparoscopic appendectomy Anesthesia: CANDACE Surgeon: Kermit Coburn Estimated Blood Loss (ml): 15 Pathology: other (appendix) Condition: stable Disposition: PACU Indications for Procedure: appendicitis Operative Findings: Patient was brought to the operative suite where she was claned and draped in sterile fashion. A timeout was performed and everyone agreed with the information recited. Next a 5mm visiport was then used to gain access into the abdomen. Next two more working ports were placed in the periumbilical region and suprapubic region. The patient was placed in the right side up and [place]. The cecum was retracted medially and the appendix was easily identified. It appeared to be very edematous and inflammed with a small perforation at the base and at the tip. This was grasped and a ligasure was used to take down the appendiceal artery. Once the base was cleaned off and endogia 30 lainez staple load was used resect the appendix. The staple line was evaluated and no bleeding was observed. Given the perforation, a pako drain was placed in the right lower quadrant. A 2-0 nylon was used to secure the pako drain. The appendix was removed out of the umbilical incision using an endocatch bag. A nahomi heena device was used to close the fasscia of the umbilicus. All instruments were were removed out of the abdomen. The incisions were closed using 4-0 vicryl suture in an interrupted fashion. The patent tolerated the procedure well and was trasnported to pacu in stable condition.
[2024-08-14] MEDS ORDERED: BENZOCAINE/MENTHOL LOZENG 1 EACH LOZENGE MUCOUS MEM PRN (16:14)
[2024-08-15 07:51] LABS: Basophils # (A) 0.1 k/uL (0-0.2); Basophils % (A) 1 %; Eosinophils # (A) 0.3 k/uL (0-0.7); Eosinophils % (A) 2 %; HCT 40.8 % (34.0-46.0); HGB 13.5 gm/dL (11.4-16.0); Lymphocytes # (A) 2.6 k/uL (1.0-4.8); Lymphocytes % (A) 17 %; MCH 28.7 pg (25.0-35.0); MCHC 33.1 g/dL (31.0-37.0); MCV 86.6 fL (80.0-100.0); Mean Platelet Volume 6.7; Monocytes # (A) 0.7 k/uL (0-1.0); Monocytes % (A) 5 %; Neutrophils % (A) 74 %; Platelet Count 322 k/uL (150-450); RBC 4.72 m/uL (3.80-5.40); RDW 12.7 % (11.5-15.5); WBC 14.8 k/uL (3.8-10.6)
[2024-08-15 08:05] LABS: African American GFR (CKD) >90 (>60 ml/min/1.73 sqM); Anion Gap 6 mmol/L; Blood Urea Nitrogen 8 mg/dL (7-17); Calcium 8.8 mg/dL (8.4-10.2); Carbon Dioxide 28 mmol/L (22-30); Chloride 102 mmol/L (98-107); Glucose 107 mg/dL (74-99); Non-African American GFR(CKD) >90 (>60 ml/min/1.73 sqM); Potassium 4.2 mmol/L (3.5-5.1); Sodium 136 mmol/L (137-145)
[2024-08-15] MEDS: SODIUM CHLORIDE 0.9% 1,000 ML IV ONE (08:06)
[2024-08-15] MEDS: guaiFENesin 600 MG TABLET.ER PO ONE (08:52)
[2024-08-15] MEDS: bisacodyL 10 MG SUPP RECTAL ONE (08:52)
[2024-08-15 12:47] LABS: Basophils % (A) 0 %; Eosinophils # (A) 0.3 k/uL (0-0.7); Eosinophils % (A) 2 %; HCT 37.5 % (34.0-46.0); HGB 12.5 gm/dL (11.4-16.0); Lymphocytes # (A) 2.4 k/uL (1.0-4.8); Lymphocytes % (A) 18 %; MCH 28.9 pg (25.0-35.0); MCHC 33.4 g/dL (31.0-37.0); MCV 86.6 fL (80.0-100.0); Mean Platelet Volume 6.8; Monocytes # (A) 0.8 k/uL (0-1.0); Monocytes % (A) 6 %; Neutrophils # (A) 9.6 k/uL (1.3-7.7); Neutrophils % (A) 72 %; Platelet Count 287 k/uL (150-450); RBC 4.33 m/uL (3.80-5.40); RDW 12.7 % (11.5-15.5); WBC 13.3 k/uL (3.8-10.6)
[2024-08-15] MEDS: DOCUSATE 100 MG CAP PO SCH (18:18)
[2024-08-15] MEDS ORDERED: DOCUSATE 100 MG CAP PO SCH (21:00)
--- NOTE | 2024-08-15 23:13 | P.PN ---
Subjective Patient seen and evaluated at bedside. Doing well, admits to soreness around incision. Tolerating diet, no bowel movement. Objective - Vital Signs Vital signs: Vital Signs Temp 97.6 F 08/15/24 13:11 Pulse 105 H 08/15/24 13:11 Resp 17 08/15/24 13:11 BP 110/72 08/15/24 13:11 Pulse Ox 97 08/15/24 13:11 FiO2 Intake & Output 08/15/24 08/15/24 08/16/24 06:59 18:59 06:59 Output Total 60 25 Balance -60 -25 Output: Drainage 60 25 Lower Abdomen 60 25 Other: Voiding Method Toilet Toilet # Voids 1 3 - Exam gen: nad cv: rrr pul: non labored breathing abd: soft, distended, min tenderness to palpation, no guarding or rebound tenderness, surgical incisions c/d/i - Labs CBC & Chem 7: 08/15/24 12:33 08/15/24 07:26 Labs: Abnormal Lab Results - Last 24 Hours (Table) 08/15/24 08/15/24 08/15/24 Range/Units 07:26 07:26 12:33 WBC 14.8 H 13.3 H (3.8-10.6) k/uL Neutrophils # 11.0 H 9.6 H (1.3-7.7) k/uL Sodium 136 L (137-145) mmol/L Glucose 107 H (74-99) mg/dL Assessment and Plan Assessment: 29 yo female s/p lap appendectomy with drain placement -continue abx -discharge planning within the next 24 hrs -recheck hgb -constipation, dulcolax suppository and po colace s/p 1l bolus for tachycardia/oliguria Time with Patient: Less than 30
[2024-08-16 09:26] LABS: Basophils # (A) 0.07 X 10*3/uL (0.00-0.10); Basophils % (A) 0.8 %; Eosinophils # (A) 0.29 X 10*3/uL (0.04-0.35); Eosinophils % (A) 3.2 %; HCT 39.3 % (37.2-46.3); HGB 12.5 g/dL (12.0-15.0); Lymphocytes # (A) 2.81 X 10*3/uL (0.90-5.00); Lymphocytes % (A) 31.2 %; MCH 28.1 pg (27.0-32.0); MCHC 31.8 g/dL (32.0-37.0); MCV 88.3 FL (80.0-97.0); Mean Platelet Volume 9.6 FL (9.5-12.2); Monocytes # (A) 0.76 X 10*3/uL (0.20-1.00); Monocytes % (A) 8.4 %; NRBC Per 100 WBC 0 X 10*3/uL (0.00-0.01); Neutrophils # (A) 5.01 X 10*3/uL (1.80-7.70); Neutrophils % (A) 55.7 %; Platelet Count 302 X 10*3/uL (140-440); RBC 4.45 X 10*6/uL (4.10-5.20); RDW 12.5 % (11.5-14.5)
[2024-08-16 09:29] VITALS: BP 116/77; PULSE 92; RESP 18; TEMP 98.4
--- NOTE | 2024-08-16 11:37 | P.DS ---
Providers Date of admission: 08/14/24 11:10 Expected date of discharge: 08/16/24 Attending physician: Kermit Coburn DO Primary care physician: Jessica Chaudhary Hospital Course: Discharge diagnosis 1. Appendicitis Hospital course This is a 29-year-old female who presented to the hospital with complaints of right lower quadrant abdominal pain. CT scan had showed evidence of acute appendicitis. Patient is status post laparoscopic appendectomy. Patient tolerated surgery well. Her pain is controlled. Her tachycardia improved with IV fluids. She is tolerating diet. She is having flatus. She denies any difficulty urinating. She is afebrile. She is stable for discharge. Please refer to chart for any further details. Physician Photographic Supervisor note has been reviewed by physician. Signing provider agrees with the documented findings, assessment, and plan of care. Patient Condition at Discharge: Stable Plan - Discharge Summary Discharge Rx Participant: No New Discharge Prescriptions: New Docusate [Colace] 100 mg PO BID #30 capsule oxyCODONE HCL [OxyIR] 5 mg PO Q6H PRN 3 Days #12 tab PRN Reason: Pain Acetaminophen Tab [Tylenol] 1,000 mg PO Q6HR PRN #30 tablet PRN Reason: Pain Discharge Medication List Acetaminophen Tab [Tylenol] 1,000 mg PO Q6HR PRN #30 tablet 08/16/24 [Rx] Docusate [Colace] 100 mg PO BID #30 capsule 08/16/24 [Rx] oxyCODONE HCL [OxyIR] 5 mg PO Q6H PRN 3 Days #12 tab 08/16/24 [Rx] Follow up Appointment(s)/Referral(s): Jessica Chaudhary DO [Primary Care Provider] - 1-2 days Kermit Coburn DO [Doctor of Osteopathic Medicine] - 1 Week Activity/Diet/Wound Care/Special Instructions: No driving while taking OxyIR No lifting over 10 pounds You may shower. No soaking or tub baths for 2 weeks Very light activity until you are reevaluated at your follow up appointment with your surgeon Keep a log of TEVIN drain output and bring with you to your follow-up appointment Milk/strip drains 2-3 times a day Discharge Disposition: HOME SELF-CARE
== END 2024-08-16 12:47 | disposition home or self-care (01) ==
LOC: EC 08:26 → 4SSUR 11:10 → INTOOBSV 11:10 → 4SSUR 12:01
PROVIDERS: ADMIT Surgery; ATTEND Surgery
DX: K35.80 Unspecified acute appendicitis (principal); K59.00 Constipation, unspecified; R00.0 Tachycardia, unspecified; R34 Anuria and oliguria; F41.9 Anxiety disorder, unspecified; Z79.899 Other long term (current) drug therapy
CPT/HCPCS: 44970; 96376; 96374; 96375; 99285; 36415; 88304; 80053; 80048; 85025 ×3; 84703; 76705; 74177; G0378 ×3; J2250; J0330; J2710; J2405; J2003; J0696; J3010; J1885; J2704; Q9967; J1836; J1596